=== PATIENT | female | born 1950 | race Caucasian/White ===

== ENCOUNTER 2018-04-06 11:36 | Observation (INO) | payer OTHER ==
[2018-04-06] MEDS ORDERED: METOPROLOL TARTRATE 5 MG/5 ML INJ IV ONE (12:06)
[2018-04-06] MEDS ORDERED: METOPROLOL TAR 50 MG TAB ONE (12:06)
[2018-04-06] MEDS ORDERED: NA CHLORIDE 0.9% 1,000 ML ONE (12:06)
[2018-04-06 12:12] LABS: Absolute Monocytes 0.8 K/uL (0.1-1.3); Absolute Neutrophil 6.6 K/uL (1.8-8.0); Basophils % 1.3 % (0-1.3); Eosinophils % 2.1 % (0-4.4); Hematocrit 45.3 % (36.0-45.0); MCH 31.5 pg (27.0-35.0); MPV 8.9 fL (7.6-11.3); Monocytes % 7.4 % (3.3-12.3); RBC Red Blood Cell Count 4.98 M/uL (3.86-4.86)
[2018-04-06 12:19] LABS: Protime INR 1.13
[2018-04-06 12:38] LABS: ALT/SGPT 23 U/L (12-78); AST/SGOT 11 U/L (15-37); Albumin 3.9 g/dL (3.4-5.0); Alkaline Phosphatase 115 U/L (45-117); BUN Blood Urea Nitrogen 17 mg/dL (7-18); Bicarbonate 24 mmol/L (21-32); Bilirubin Direct 0.1 mg/dL (0-0.2); Bilirubin Total 0.3 mg/dL (0.2-1.0); Glucose Level 116 mg/dL (74-106); Lipase 165 U/L (73-393); Magnesium 2.4 mg/dL (1.8-2.4); NT PRO-BNP 644 pg/mL (<125); Potassium 4.1 mmol/L (3.5-5.1); Protein, Total 7.5 g/dL (6.4-8.2); Sodium Level 143 mmol/L (136-145); Thyroid Stimulating Hormone 0.015 uIU/mL (0.360-3.740); Troponin (Emerg Dept Use Only) < 0.02 ng/mL (0.0-0.045)
[2018-04-06] MEDS ORDERED: FAMOTIDINE 20 MG/2 ML VIAL IV ONE (12:42)
[2018-04-06] MEDS ORDERED: ENOXAPARIN 100 MG/ML SYR SQ ONE (12:42)
--- NOTE | 2018-04-06 12:49 | RAD REPORT ---
EXAM DESCRIPTION: RAD - Chest Single View - 04/06/2018 12:39 pm CLINICAL HISTORY: Palpitations, cardiac a arrhythmia, tachycardia COMPARISON: None. TECHNIQUE: AP portable chest image was obtained 1225 hours . FINDINGS: No mass, consolidation or failure finding. Interstitial markings are mildly prominent pres umed to be baseline. No acute respiratory symptoms were detailed. Heart and vasculature are normal. N o measurable pleural effusion and no pneumothorax. No gross bony abnormality seen. No acute aortic fi ndings suspected. Resuscitation paddles overlie the upper right chest left upper lateral abdomen IMPRESSION: No acute cardiopulmonary process.
--- OUTSIDE RECORDS SUMMARY | 2018-04-06 13:03 | XMS REPORT ---
:1950 Author Organization eClinicalWorks Care Team Providers Name Role Phone Cassy Aden Provider Role Unavailable Allergies No Known Allergies Problems Problem Type Condition Code Onset Dates Condition Status Problem Hypothyroidism, unspecified type E03.9 Active Problem Elevated blood pressure reading R03.0 Active without diagnosis of hypertension Problem Hypothyroidism E03.9 Active Assessment Hypothyroidism E03.9 Active Problem Cardiac dysrhythmia, unspecified I49.9 Active Medications Medication Code Code Instructions Start End Status Dosage System Date Date Levothyroxine [facility] [id number] 175 MCG Orally Active 1 tablet Sodium Once a day on an empty stomach in the morning Results No Known Results Summary Purpose eClinicalWorks Submission
--- OUTSIDE RECORDS SUMMARY | 2018-04-06 13:03 | XMS REPORT ---
:1950 Author Organization eClinicalWorks Care Team Providers Name Role Phone Cassy Aden Provider Role Unavailable Allergies, Adverse Reactions, Alerts Substance Reaction Event Type N.K.D.A. Info Not Available Non Drug Allergy Problems Problem Type Condition Code Onset Dates Condition Status Problem Hypothyroidism, unspecified type E03.9 Active Problem Elevated blood pressure reading R03.0 Active without diagnosis of hypertension Problem Hypothyroidism E03.9 Active Assessment Elevated blood pressure reading R03.0 Active without diagnosis of hypertension Problem Cardiac dysrhythmia, unspecified I49.9 Active Assessment Hypothyroidism, unspecified type E03.9 Active Medications Medication Code Code Instructions Start End Status Dosage System Date Date Levothyroxine [facility] [id number] 175 MCG Orally Active 1 tablet Sodium Once a day on an empty stomach in the morning Results No Known Results Summary Purpose eClinicalWorks Submission
[2018-04-06] MEDS ORDERED: ASPIRIN 81 MG CHEWABLE TABLET ONE (13:09)
--- NOTE | 2018-04-06 14:08 | EDPHYS ---
Physician Documentation [facility] Name: Julieth Stevenson Age: 67 yrs Sex: Female : 1950 Arrival Date: 04/06/2018 Time: 11:39 Bed 4 Private MD: Cassy Aden ED Physician Jean Marie Alvarez HPI: 04/06 12:52 This 67 yrs old Female presents to ER via Ambulatory with complaints of High jeannette Heart Rate. 12:52 The patient presents with a history of irregular heart beat, heart racing. Context: The jeannette symptoms occur at rest, with light activity. Onset: The symptoms/episode began/occurred just prior to arrival. Duration: The patient or guardian reports a single episode, that is still ongoing. Modifying factors: The symptoms are aggravated by nothing. The symptoms are alleviated by nothing. Associated signs and symptoms: Pertinent positives: SOB. Severity of symptoms: At their worst the symptoms were mild moderate in the emergency department the symptoms are unchanged. The patient has experienced similar episodes in the past, a few times. Historical: - Allergies: 11:45 No Known Allergies; aa5 - PMHx: 11:45 Thyroid problem; aa5 - PSHx: 11:45 None; aa5 - Immunization history:: Adult Immunizations. - Ebola Screening: : No symptoms or risks identified at this time. - Social history:: Smoking status: . - Family history:: not pertinent. ROS: 12:52 Constitutional: Negative for fever, chills, and weight loss, Eyes: Negative for injury, jeannette pain, redness, and discharge, ENT: Negative for injury, pain, and discharge, Neck: Negative for injury, pain, and swelling, Respiratory: Negative for shortness of breath, cough, wheezing, and pleuritic chest pain, Abdomen/GI: Negative for abdominal pain, nausea, vomiting, diarrhea, and constipation, Back: Negative for injury and pain, : Negative for injury, bleeding, discharge, and swelling, MS/Extremity: Negative for injury and deformity, Skin: Negative for injury, rash, and discoloration, Neuro: Negative for headache, weakness, numbness, tingling, and seizure, Psych: Negative for depression, anxiety, suicide ideation, homicidal ideation, and hallucinations, Allergy/Immunology: Negative for hives, rash, and allergies, Endocrine: Negative for neck swelling, polydipsia, polyuria, polyphagia, and marked weight changes, Hematologic/Lymphatic: Negative for swollen nodes, abnormal bleeding, and unusual bruising. 12:52 Cardiovascular: Positive for palpitations. Exam: 12:52 Constitutional: This is a well developed, well nourished patient who is awake, alert, jeannette and in no acute distress. Head/Face: Normocephalic, atraumatic. Eyes: Pupils equal round and reactive to light, extra-ocular motions intact. Lids and lashes normal. Conjunctiva and sclera are non-icteric and not injected. Cornea within normal limits. Periorbital areas with no swelling, redness, or edema. ENT: Nares patent. No nasal discharge, no septal abnormalities noted. Tympanic membranes are normal and external auditory canals are clear. Oropharynx with no redness, swelling, or masses, exudates, or evidence of obstruction, uvula midline. Mucous membranes moist. Neck: Trachea midline, no thyromegaly or masses palpated, and no cervical lymphadenopathy. Supple, full range of motion without nuchal rigidity, or vertebral point tenderness. No Meningismus. Chest/axilla: Normal chest wall appearance and motion. Nontender with no deformity. No lesions are appreciated. Respiratory: Lungs have equal breath sounds bilaterally, clear to auscultation and percussion. No rales, rhonchi or wheezes noted. No increased work of breathing, no retractions or nasal flaring. Abdomen/GI: Soft, non-tender, with normal bowel sounds. No distension or tympany. No guarding or rebound. No evidence of tenderness throughout. Back: No spinal tenderness. No costovertebral tenderness. Full range of motion. Female : Normal external genitalia. Skin: Warm, dry with normal turgor. Normal color with no rashes, no lesions, and no evidence of cellulitis. MS/ Extremity: Pulses equal, no cyanosis. Neurovascular intact. Full, normal range of motion. Neuro: Awake and alert, GCS 15, oriented to person, place, time, and situation. Cranial nerves II-XII grossly intact. Motor strength 5/5 in all extremities. Sensory grossly intact. Cerebellar exam normal. Normal gait. Psych: Awake, alert, with orientation to person, place and time. Behavior, mood, and affect are within normal limits. 12:52 Cardiovascular: Rate: tachycardic, Rhythm: irregularly irregular, Pulses: Pulses are 4+ in bilateral radial, brachial, femoral, popliteal, posterior tibial and and dorsalis pedis arteries.. Heart sounds: normal, Edema: is not appreciated, JVD: is noted bilaterally. Vital Signs: 11:42 Pulse 160; Resp 18 S; Pulse Ox 97% on R/A; Weight 91.63 kg (R); Height 5 ft. 7 in. aa5 (170.18 cm) (R); 12:03 Temp 98.4(O); tw2 12:04 Pulse 80; tw2 12:06 BP 138 / 68; Pulse 85; tw2 12:44 BP 155 / 81; Pulse 81; Resp 23; Pulse Ox 97% on R/A; tw2 13:07 BP 149 / 61; Pulse 74; Resp 15; Pulse Ox 99% on R/A; tw2 13:52 BP 127 / 64; Pulse 77; Resp 16; Pulse Ox 100% on R/A; hb 14:26 BP 128 / 75; Pulse 69; Resp 15; Pulse Ox 100% on R/A; hb 15:30 BP 146 / 70; Pulse 70; Resp 17; Pulse Ox 100% on R/A; tw2 15:57 BP 122 / 67; Pulse 70; Resp 17; Pulse Ox 99% on R/A; tw2 11:42 Body Mass Index 31.64 (91.63 kg, 170.18 cm) aa5 12:04 provider notified, EKG ordered. tw2 12:06 ekg at bedside at this time. tw2 MDM: 11:56 Patient medically screened. [facility] 12:52 Data reviewed: vital signs, nurses notes, lab test result(s), EKG, radiologic studies. [facility] 04/06 11:58 Order name: Basic Metabolic Panel; Complete Time: 12:55 [facility] 04/06 11:58 Order name: CBC with Diff; Complete Time: 12:55 [facility] 04/06 11:58 Order name: LFT's; Complete Time: 12:55 [facility] 04/06 11:58 Order name: Magnesium; Complete Time: 12:55 [facility] 04/06 11:58 Order name: NT PRO-BNP; Complete Time: 12:55 [facility] 04/06 11:58 Order name: PT-INR; Complete Time: 12:55 [facility] 04/06 11:58 Order name: Troponin (emerg Dept Use Only); Complete Time: 12:55 [facility] 04/06 11:58 Order name: XRAY Chest (1 view); Complete Time: 12:55 [facility] 04/06 11:58 Order name: TSH; Complete Time: 12:55 [facility] 04/06 11:58 Order name: Urine Culture [facility] 04/06 11:58 Order name: Lipase; Complete Time: 12:55 [facility] 04/06 13:35 Order name: Echo w/ Doppler [facility] 04/06 11:58 Order name: EKG; Complete Time: 11:59 [facility] 04/06 11:58 Order name: Cardiac monitoring; Complete Time: 18:39 [facility] 04/06 11:58 Order name: EKG - Nurse/Tech; Complete Time: 18:39 [facility] 04/06 11:58 Order name: IV Saline Lock; Complete Time: 18:39 [facility] 04/06 11:58 Order name: Labs collected and sent; Complete Time: 18:39 [facility] 04/06 11:58 Order name: O2 Per Protocol; Complete Time: 18:39 [facility] 04/06 11:58 Order name: O2 Sat Monitoring; Complete Time: 18:39 [facility] 04/06 14:15 Order name: EKG Electrocardiogram EDMN 04/06 14:15 Order name: CONS Physician Consult EDMN Administered Medications: 12:00 Drug: Lopressor (metoprolol TARTRATE) 50 mg Route: PO; tw2 12:59 Follow up: Response: No adverse reaction tw2 12:02 Drug: NS 0.9% 1000 ml Route: IV; Rate: 75 ml/hr; Site: right antecubital; tw2 14:48 Follow up: IV Status: Infusion continued upon admission tw2 12:40 Drug: Lovenox 1 mg/kg Route: Sub-Q; Site: right lower abdomen; tw2 13:06 Follow up: Response: No adverse reaction tw2 12:41 Drug: Pepcid 20 mg Route: IVP; Site: right antecubital; tw2 13:07 Follow up: Response: No adverse reaction tw2 13:06 Drug: Aspirin 81 mg Route: PO; tw2 13:07 Follow up: Response: No adverse reaction tw2 15:57 Not Given (pts condition): Lopressor 5 mg IVP every 5 minutes; Hold for SBP < 100 or HR tw2 < 60. x3 Disposition: 04/06/18 14:08 Hospitalization ordered by Keiko Navarrete for Observation. Preliminary diagnosis is Atrial fibrillation and flutter - with rvr. - Bed requested for Telemetry/MedSurg (observation). - Status is Observation. tw2 - Condition is Stable. - Problem is new. - Symptoms have improved. UTI on Admission? No Signatures: Dispatcher [employer] EDMS Peggy Bradley Corey, MD MD cha Calderon, Audri, RN RN aa5 Yanet Soto RN RN tw2 Corrections: (The following items were deleted from the chart) 14:18 14:08 Hospitalization Ordered by Chandler Mccoy DO for Observation. Preliminary jeannette diagnosis is Atrial fibrillation and flutter - with rvr. Bed requested for Telemetry/MedSurg (observation). Status is Observation. Condition is Stable. Problem is new. Symptoms have improved. UTI on Admission? No. jeannette 14:46 14:18 04/06/2018 14:08 Hospitalization Ordered by Keiko Navarrete MD for Observation. bd Preliminary diagnosis is Atrial fibrillation and flutter - with rvr. Bed requested for Telemetry/MedSurg (observation). Status is Observation. Condition is Stable. Problem is new. Symptoms have improved. UTI on Admission? No. jeannette 15:58 14:46 04/06/2018 14:08 Hospitalization Ordered by Keiko Navarrete MD for Observation. tw2 Preliminary diagnosis is Atrial fibrillation and flutter - with rvr. Bed requested for Telemetry/MedSurg (observation). Status is Observation. Condition is Stable. Problem is new. Symptoms have improved. UTI on Admission? No. bd
--- NOTE | 2018-04-06 14:08 | ER ---
Nurse's Notes [facility] Name: Julieth Stevenson Age: 67 yrs Sex: Female : 1950 Arrival Date: 04/06/2018 Time: 11:39 Bed 4 Private MD: Cassy Aden Diagnosis: Atrial fibrillation and flutter-with rvr Presentation: 04/06 11:40 Presenting complaint: Patient states: "I went to Dr. Palomo's office for a well aa5 women's check up and she said to come here because my heart rate is 160". Pt denies SOB, denies chest pain, denies palpitations. 11:40 Acuity: LAST 2 aa5 11:40 Method Of Arrival: Ambulatory aa5 11:51 Transition of care: patient was not received from another setting of care. Onset of aa5 symptoms was April 06, 2018. Risk Assessment: Do you want to hurt yourself or someone else? Patient reports no desire to harm self or others. Initial Sepsis Screen: Does the patient meet any 2 criteria? HR > 90 bpm. Does the patient have a suspected source of infection? No. Patient's initial sepsis screen is negative. Care prior to arrival: None. Historical: - Allergies: 11:45 No Known Allergies; aa5 - PMHx: 11:45 Thyroid problem; aa5 - PSHx: 11:45 None; aa5 - Immunization history:: Adult Immunizations. - Ebola Screening: : No symptoms or risks identified at this time. - Social history:: Smoking status: . - Family history:: not pertinent. Screenin:06 Abuse screen: Denies threats or abuse. Nutritional screening: No deficits noted. tw2 Tuberculosis screening: No symptoms or risk factors identified. Fall Risk None identified. Assessment: 12:06 General: Appears in no apparent distress. well groomed, Behavior is calm, cooperative, tw2 appropriate for age. Pain: Denies pain. Neuro: Level of Consciousness is awake, alert, obeys commands, Oriented to person, place, time, situation. Cardiovascular: Denies chest pain, shortness of breath, Heart tones S1 S2 Capillary refill < 3 seconds Patient's skin is warm and dry. Respiratory: Airway is patent Respiratory effort is even, unlabored, Respiratory pattern is regular, symmetrical, Breath sounds are clear bilaterally. GI: No signs and/or symptoms were reported involving the gastrointestinal system. Abdomen is round obese, Bowel sounds present X 4 quads. : No signs and/or symptoms were reported regarding the genitourinary system. EENT: No signs and/or symptoms were reported regarding the EENT system. Derm: No signs and/or symptoms reported regarding the dermatologic system. Musculoskeletal: No signs and/or symptoms reported regarding the musculoskeletal system. Circulation, motion, and sensation intact. Range of motion: intact in all extremities. 12:45 Reassessment: Patient appears in no apparent distress at this time. No changes from tw2 previously documented assessment. Patient and/or family updated on plan of care and expected duration. Pain level reassessed. Patient is alert, oriented x 3, equal unlabored respirations, skin warm/dry/pink. 13:45 Reassessment: Patient appears in no apparent distress at this time. No changes from hb previously documented assessment. Patient and/or family updated on plan of care and expected duration. Pain level reassessed. Patient is alert, oriented x 3, equal unlabored respirations, skin warm/dry/pink. 14:26 Reassessment: Patient appears in no apparent distress at this time. No changes from hb previously documented assessment. Patient and/or family updated on plan of care and expected duration. Pain level reassessed. Patient is alert, oriented x 3, equal unlabored respirations, skin warm/dry/pink. 14:57 Reassessment: Report called to Beth CASTRO. hb 15:00 Reassessment: ECHO at bedside, Beth CASTRO notified pt transport to floor will be hb delayed. Charge Nurse Marti CASTRO notified. 15:58 Reassessment: Patient appears in no apparent distress at this time. No changes from tw2 previously documented assessment. Patient and/or family updated on plan of care and expected duration. Pain level reassessed. Patient is alert, oriented x 3, equal unlabored respirations, skin warm/dry/pink. Vital Signs: 11:42 Pulse 160; Resp 18 S; Pulse Ox 97% on R/A; Weight 91.63 kg (R); Height 5 ft. 7 in. aa5 (170.18 cm) (R); 12:03 Temp 98.4(O); tw2 12:04 Pulse 80; tw2 12:06 BP 138 / 68; Pulse 85; tw2 12:44 BP 155 / 81; Pulse 81; Resp 23; Pulse Ox 97% on R/A; tw2 13:07 BP 149 / 61; Pulse 74; Resp 15; Pulse Ox 99% on R/A; tw2 13:52 BP 127 / 64; Pulse 77; Resp 16; Pulse Ox 100% on R/A; hb 14:26 BP 128 / 75; Pulse 69; Resp 15; Pulse Ox 100% on R/A; hb 15:30 BP 146 / 70; Pulse 70; Resp 17; Pulse Ox 100% on R/A; tw2 15:57 BP 122 / 67; Pulse 70; Resp 17; Pulse Ox 99% on R/A; tw2 11:42 Body Mass Index 31.64 (91.63 kg, 170.18 cm) aa5 12:04 provider notified, EKG ordered. tw2 12:06 ekg at bedside at this time. tw2 ED Course: 11:39 Patient arrived in ED. mr 11:40 Cassy Aden MD is Private Physician. mr 11:42 Arm band placed on Patient placed in an exam room, on a stretcher. aa5 11:45 Placed in gown. Bed in low position. Side rails up X 1. animal control officer on. Pulse ox tw2 on. NIBP on. [place] applied as well. 11:54 Triage completed. aa5 11:55 Inserted saline lock: 20 gauge in right antecubital area, using aseptic technique. hb Blood collected. 11:56 Jean Marie Alvarez MD is Attending Physician. jeannette 11:59 EKG done, by coffee machine technician. reviewed by Jean Marie Alvarez MD. at1 12:06 Yanet Soto, MATTHEW is Primary Nurse. tw2 12:37 X-ray completed. Portable x-ray completed in exam room. Patient tolerated procedure sw well. 12:38 XRAY Chest (1 view) In Process Unspecified. EDMS 14:07 Chandler Mccoy DO is Hospitalizing Provider. jeannette 14:18 Keiko Navarrete MD is Hospitalizing Provider. jeannette 14:59 No provider procedures requiring assistance completed. Patient admitted, IV remains in hb place. Administered Medications: 12:00 Drug: Lopressor (metoprolol TARTRATE) 50 mg Route: PO; tw2 12:59 Follow up: Response: No adverse reaction tw2 12:02 Drug: NS 0.9% 1000 ml Route: IV; Rate: 75 ml/hr; Site: right antecubital; tw2 14:48 Follow up: IV Status: Infusion continued upon admission tw2 12:40 Drug: Lovenox 1 mg/kg Route: Sub-Q; Site: right lower abdomen; tw2 13:06 Follow up: Response: No adverse reaction tw2 12:41 Drug: Pepcid 20 mg Route: IVP; Site: right antecubital; tw2 13:07 Follow up: Response: No adverse reaction tw2 13:06 Drug: Aspirin 81 mg Route: PO; tw2 13:07 Follow up: Response: No adverse reaction tw2 15:57 Not Given (pts condition): Lopressor 5 mg IVP every 5 minutes; Hold for SBP < 100 or HR tw2 < 60. x3 Outcome: 14:08 Decision to Hospitalize by Provider. jeannette 15:58 Patient left the ED. tw2 15:58 Admitted to Med/surg accompanied by tech, with chart. tw2 15:58 Condition: stable 15:58 Instructed on the need for admit. Signatures: Dispatcher [employer] EDMS Jean Marie Alvarez MD MD cha Rivera, Maria mr Calderon, Audri, RN RN aa5 Staci Cornejo, water project engineer EKG Tat1 Orin Azevedo Heather, Yanet Ardon RN, RN RN tw2 Corrections: (The following items were deleted from the chart) 11:51 Presenting complaint: Patient states: "I went to Dr. Palomo's office for a aa5 well women's check up and she said to come here because my heart rate is 160". Pt denies SOB, denies chest pain, denies palpitations. aa5 11:51 Method Of Arrival: Ambulatory [facility] aa5 11:51 [facility]
--- NOTE | 2018-04-06 15:38 | ECHO ---
HEIGHT: ft in WEIGHT: lb oz DATE OF STUDY: 04/06/[address]: Jean Marie Alvarez MD 2-DIMENSIONAL: YES M.MODE: YES DOPPLER: YES COLOR FLOW: YES TDS: NO PORTABLE: YES DEFINITY: NO BUBBLE STUDY: NO DIAGNOSIS: TACHYCARDIA CARDIAC HISTORY: CATHERIZATION: NO SURGERY: NO PROSTHETIC VALVE: NO PACEMAKER: NO MEASUREMENTS (cm) DIASTOLIC (NORMALS) SYSTOLIC (NORMALS) IVSd 1.1 (0.6-1.2) LA Diam 3.0 (1.9-4.0) LVEF 52% LVIDd 4.6 (3.5-5.7) LVIDs 3.3 (2.0-3.5) %FS 27% LVPWd 1.1 (0.6-1.2) Ao Diam 2.7 (2.0-3.7) 2 DIMENSIONAL ASSESSMENT: RIGHT ATRIUM: NORMAL LEFT ATRIUM: NORMAL RIGHT VENTRICLE: NORAML LEFT VENTRICLE: NORMAL TRICUSPID VALVE: NORMAL MITRAL VALVE: NORMAL PULMONIC VALVE: NORMAL AORTIC VALVE: NORMAL PERICARDIAL EFFUSION: NONE AORTIC ROOT: NORMAL LEFT VENTRICULAR WALL MOTION: NORMAL DOPPLER/COLOR FLOW: MILD TRICUSPID REGURGITATION. NORMAL RIGHT VENTRICULAR SYSTOLIC PRESSURE. COMMENTS: NORMAL 2D ECHOCARDIOGRAM. MILD TRICUSPID REGURGITATION. TECHNOLOGIST: Karlo TORRES
--- NOTE | 2018-04-06 15:40 | EKG ---
Test Date: 2018-04-06 Test Time: 11:55:20 Outside Sales Account Representative: MAGALIE MEASUREMENT RESULTS: Intervals: Rate: 153 [place]: QRSD: 122 QT: 320 QTc: 510 [place]: P: [place]: QRS: 26 T: 120 INTERPRETIVE STATEMENTS: Atrial fibrillation with rapid ventricular response Left bundle branch block Abnormal ECG No previous ECG available for comparison Electronically Signed On 04-06-18 15:39:43 CDT by Andriy Xiao
--- NOTE | 2018-04-06 15:40 | EKG ---
Test Date: 2018-04-06 Test Time: 12:09:52 Lead Architect: JOSE CARLOS MEASUREMENT RESULTS: Intervals: Rate: 84 [place]: 232 QRSD: 138 QT: 402 QTc: 475 [place]: P: 74 [place]: 232 QRS: -33 T: 93 INTERPRETIVE STATEMENTS: Sinus rhythm with 1st degree AV block Left axis deviation Left bundle branch block Abnormal ECG Compared to ECG 04/06/2018 11:55:20 First degree AV block now present Left-axis deviation now present Atrial fibrillation no longer present Electronically Signed On 04-06-18 15:39:34 CDT by Andriy Xiao
--- NOTE | 2018-04-06 16:25 | P.HP ---
Certification for Inpatient Patient admitted to: Observation With expected LOS: <2 Midnights Patient will require the following post-hospital care: None Practitioner: I am a practitioner with admitting privileges, knowledge of patient current condition, hospital course, and medical plan of care. Services: Services provided to patient in accordance with Admission requirements found in Title 42 Section 412.3 of the Code of Federal Regulations Patient History Date of Service: 04/06/18 Primary Care Provider: Dr Aden Reason for admission: Afib History of Present Illness: This is a 59-year-old female with a history of hypothyroidism who presented to the ED from her primary care doctor's office. Patient stated that she was in her general state of health until she went to her primary care doctor's office today where they did her initial vitals and was found to have pulse 160. Patient's family doctor at that time recommended that she come to the ER and get a further evaluated. In the ER patient was found to have a regular heart rate with pulse rate of 157. Patient has not had any chest pain shortness of breath or any other associated symptoms with the elevated pulse rate. Patient was given medications in the ER. Patient states that in the past she has had on and off palpitations however has never had a regular rate or has not been diagnosed with irregular heart rate before. Patient does not take any medication aside from her thyroid medicine that was prescribed by her primary care doctor. Patient denies having any fever chills nausea vomiting abdominal pain shortness of breath chest pain or any other associated symptoms at this time Patient was seen in the ER by the time I saw the patient in the ER she had converted back to regular rate and rhythm. Allergies No Known Allergies Allergy (Unverified 04/06/18 14:53) Review of Systems 10-point ROS is otherwise unremarkable Physical Examination - Vital Signs Temperature: 98.4 F Blood Pressure: 146/70 Pulse: 70 Respirations: 17 - Physical Exam General: Alert, In no apparent distress HEENT: Atraumatic, PERRLA, Mucous membr. moist/pink, EOMI, Sclerae nonicteric Neck: Supple, 2+ carotid pulse no bruit, No LAD, Without JVD or thyroid abnormality Respiratory: Clear to auscultation bilaterally, Normal air movement Cardiovascular: Regular rate/rhythm, Normal S1 S2 Gastrointestinal: Normal bowel sounds, No tenderness Musculoskeletal: No tenderness Integumentary: No rashes Neurological: Normal gait, Normal speech, Normal strength at 5/5 x4 extr, Normal tone, Normal affect Lymphatics: No axilla or inguinal lymphadenopathy - Studies Laboratory Data (last 24 hrs) 04/06/18 11:55: PT 13.4 H, INR 1.13 04/06/18 11:55: WBC 10.8, Hgb 15.7 H, Hct 45.3 H, Plt Count 358 04/06/18 11:55: Sodium 143, Potassium 4.1, BUN 17, Creatinine 1.20, Glucose 116 H, Magnesium 2.4, Total Bilirubin 0.3, AST 11 L, ALT 23, Alkaline Phosphatase 115, Lipase 165 Assessment and Plan - Problems (Diagnosis) (1) Atrial fibrillation with RVR Current Visit: Yes Status: Acute Plan: Afib with RVR rate of 160 -Now Converted to Regular rate and rhythm -Cardiac tele -Cardiology consult. -ECHO pending -PO BB and Baby ASA for Anticoagulation for now (2) Hypothyroid Current Visit: Yes Status: Chronic Plan: Restart Home medication Qualifiers: Hypothyroidism type: acquired Qualified Code(s): E03.9 - Hypothyroidism, unspecified Discharge Plan: Home Plan to discharge in: 24 Hours - Advance Directives Does patient have a Living Will: No Does patient have a Durable POA for Healthcare: No - Code Status/Comfort Care Code Status Assessed: Yes Critical Care: No
[2018-04-06] MEDS ORDERED: ONDANSETRON 4 MG/2 ML VIAL IV PRN (16:30)
[2018-04-06] MEDS ORDERED: ACETAMINOPHEN 500 MG TAB PO PRN (16:30)
[2018-04-06] MEDS: NA CHLORIDE 0.9% 1,000 ML IV SCH ×2 (16:30→23:32)
[2018-04-06 16:44] VITALS: BMI 31.6
[2018-04-06] MEDS ORDERED: INFLUENZA VACCINE (for 3y+) 0.5 ML DOSE IMVAC ONE (18:00)
[2018-04-06 22:55] VITALS: O2SAT 98
[2018-04-07 04:52] LABS: Absolute Lymphocytes (CBC) 2.6 K/uL (0.7-4.9); Absolute Monocytes 0.6 K/uL (0.1-1.3); Absolute Neutrophil 3.8 K/uL (1.8-8.0); Eosinophils % 3.8 % (0-4.4); Hematocrit 36.1 % (36.0-45.0); Lymphocytes % 35.4 % (15.3-44.8); MCH 31.9 pg (27.0-35.0); MCV 92.5 fL (80-100); MPV 8.8 fL (7.6-11.3); Monocytes % 8.5 % (3.3-12.3)
[2018-04-07 05:03] LABS: Albumin 3.1 g/dL (3.4-5.0); Bilirubin Total 0.4 mg/dL (0.2-1.0); Potassium 4.6 mmol/L (3.5-5.1); Protein, Total 5.9 g/dL (6.4-8.2)
[2018-04-07] MEDS: NA CHLORIDE 0.9% 1,000 ML IV SCH (08:42)
[2018-04-07] MEDS ORDERED: ENOXAPARIN 40 MG/0.4 ML SQ SCH (09:00)
[2018-04-07 10:11] VITALS: BP 163/68; TEMP 97.3
--- NOTE | 2018-04-07 13:45 | P.SSS ---
Patient History Date of Service: 04/07/18 Primary Care Provider: Dr Aden Reason for admission: Afib History of Present Illness: This is a 59-year-old female with a history of hypothyroidism who presented to the ED from her primary care doctor's office. Patient stated that she was in her general state of health until she went to her primary care doctor's office today where they did her initial vitals and was found to have pulse 160. Patient's family doctor at that time recommended that she come to the ER and get a further evaluated. In the ER patient was found to have a regular heart rate with pulse rate of 157. Patient has not had any chest pain shortness of breath or any other associated symptoms with the elevated pulse rate. Patient was given medications in the ER. Patient states that in the past she has had on and off palpitations however has never had a regular rate or has not been diagnosed with irregular heart rate before. Patient does not take any medication aside from her thyroid medicine that was prescribed by her primary care doctor. Patient denies having any fever chills nausea vomiting abdominal pain shortness of breath chest pain or any other associated symptoms at this time Patient was seen in the ER by the time I saw the patient in the ER she had converted back to regular rate and rhythm. Allergies No Known Allergies Allergy (Verified 04/06/18 16:34) Home Medications: Levothyroxine [Synthroid*] 75 mcg PO [id number] 04/06/18 Aspirin 81 mg PO DAILY #30 tab.chew 04/07/18 Metoprolol Succinate [Toprol Xl] 25 mg PO DAILY #30 tab.er.24h 04/07/18 - Past Medical/Surgical History Has patient received pneumonia vaccine in the past: No Diabetic: No -: Hypothyroid -: sinus problems - Family History Mother -: Hypertension, Diabetes Father -: Stroke, Cancer - Social History Smoking Status: Never smoker Alcohol use: No CD- Drugs: No Caffeine use: Yes Place of Residence: Home Review of Systems 10-point ROS is otherwise unremarkable Physical Examination - Vital Signs Temperature: 97.3 F Blood Pressure: 163/68 Pulse: 71 Respirations: 18 Pulse Ox (%): 97 - Physical Exam General: Alert, In no apparent distress HEENT: Atraumatic, PERRLA, Mucous membr. moist/pink, EOMI, Sclerae nonicteric Neck: Supple, 2+ carotid pulse no bruit, No LAD, Without JVD or thyroid abnormality Respiratory: Clear to auscultation bilaterally, Normal air movement Cardiovascular: Regular rate/rhythm, Normal S1 S2 Gastrointestinal: Normal bowel sounds, No tenderness Musculoskeletal: No tenderness Integumentary: No rashes Neurological: Normal gait, Normal speech, Normal strength at 5/5 x4 extr, Normal tone, Normal affect Lymphatics: No axilla or inguinal lymphadenopathy - Diagnosis (Problem(s)) (1) Atrial fibrillation with RVR Onset Date: 04/07/18 Status: Acute Plan: Afib with RVR rate of 160 on admission -Now Converted to Regular rate and rhythm -Cardiology was consulted who recommended the patient be started on Toprol-XL 25 mg and baby aspirin and be discharged home (2) Hypothyroid Onset Date: 04/07/18 Status: Chronic Plan: Patient was advised to take levothyroxine every other day due to decrease in TSH Qualifiers: Hypothyroidism type: acquired Qualified Code(s): E03.9 - Hypothyroidism, unspecified - Disposition Disposition: ROUTINE DISCHARGE Condition: GOOD Patient Discharge Instructions: Please F.u with PCP and Dr Ren in the office in 1 to 2 week post discharge. New medication. Toprol xl 25mg daily. ASA 81mg daily. Take your Thyroid medication Every other day Diet: Regular Activity: Ad layla
--- NOTE | 2018-04-08 12:23 | CON ---
Date of Consultation: 04/07/2018 The patient was admitted to Dr. Navarrete's service on 04/06/2018. Reason For Consultation: New-onset atrial fibrillation. History Of Present Illness: Ms. Stevenson is a 67-year-old female, who did not really have any past me dical history except for hypothyroidism, for which she takes Synthroid. Her TSH level during this ad mission was 0.015, indicated that she may be taking too much Synthroid. She actually was found to be in atrial fibrillation, was sent to the emergency room. She was asymptomatic and was giv en 50 mg of Lopressor p.o. and she converted to sinus rhythm. An echocardiogram done, before I saw h er, was perfectly normal without any wall motion abnormalities CHADS score. Past Medical History: Negative. Allergies: NONE. Review of Systems: Negative. Social History: Negative. Family History: Negative. Medications: Listed earlier. Physical Examination: General: She was hypertensive at 170/72, but in sinus rhythm. HEENT: Negative. Neck: Supple. No bruit. Chest: Clear. Cardiac: Revealed a regular rhythm and rate. No murmurs, gallops, or rubs. Abdomen: Benign. Extremities: Revealed no clubbing, cyanosis, or edema. Diagnostic Data: Diagnostic data, except for the TSH, was fairly unremarkable. Her first EKG showed left bundle-branch block with AFib. The second one was normal with a left bundle-branch block. Her BNP was 644. Impression And Plan: New-onset atrial fibrillation with left bundle-branch block in a patient with a low CHADS score, normal echocardiogram, hypertension, dyslipidemia, no previous strokes. I think a baby aspirin and low-dose beta-kristal if indicated. Her beta kristal may help prevent her atrial fi brillation and treat her blood pressure. She needs to decrease her Synthroid dose somehow. I recomm ended that she takes it every other day for now and check with regarding dosing. She can go home today whenever it is okay with Dr. Navarrete. I think it would be very reasonable to do a st ress test on Ms. Stevenson as an outpatient to make sure that coronary artery disease is not the culpri t in her atrial fibrillation. This will be arranged as an outpatient. The case was discussed with Jaymie Navarrete. She can go home. JOSH/JAGJIT Voice ID: [id number] Report ID: [id number]
== END 2018-04-07 12:15 | disposition home or self-care (01) ==
LOC: ER 11:36 → ERHOLD 14:10 → 4TH 15:00
PROVIDERS: ADMIT Family Medicine; ATTEND Family Medicine
DX: I48.91 Unspecified atrial fibrillation (principal); E03.9 Hypothyroidism, unspecified; I44.7 Left bundle-branch block, unspecified
CPT/HCPCS: 36415; 71045; 80048; 80053; 80076; 83690; 83735; 83880; 84443; 84484; 85025 ×2; 85610; 93005 ×2; 93306; 96361; 96372; 96374; 99285; G0378 ×2; J1650 ×2; J7030 ×3

== ENCOUNTER 2023-08-13 10:30 | Day surgery (SDC) | payer OTHER ==
[2023-08-11 10:34] LABS: Hematocrit 42.1 % (36.0-45.0); Lymphocytes % 31.4 % (15.3-44.8); MCV 89.2 fL (80-100); MPV 8.6 fL (7.6-11.3); Platelets 298 thou/uL (152-406); RBC Red Blood Cell Count 4.72 M/uL (3.86-4.86)
[2023-08-11 10:41] LABS: Protime INR 1.38
[2023-08-11 10:48] LABS: Potassium 4.2 mEq/L (3.5-5.1)
[2023-08-13] MEDS ORDERED: NA CHLORIDE 0.9% 500 ML ONE (11:22)
[2023-08-13] MEDS ORDERED: METOPROLOL TARTRATE 5 MG/5 ML INJ IV ONE (11:50)
[2023-08-13] MEDS ORDERED: HYDRALAZINE HCL 20 MG/ML VIAL ONE (11:50)
[2023-08-13] MEDS ORDERED: ATROPINE SULF 1 MG/10 ML SYR IV ONE (11:51)
[2023-08-13] MEDS ORDERED: propofoL 200 MG/20 ML VIAL IV ONE (12:28)
[2023-08-13] MEDS ORDERED: LIDOCAINE 1% MPF 5 ML VIAL ONE (12:38)
[2023-08-13 14:07] VITALS: BP 118/85; TEMP 97.3; O2SAT 100
--- NOTE | 2023-08-14 06:51 | TEE ---
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 TRANSESOPHAGEAL ECHOCARDIOGRAM PROBE WAS INSERTED, NO DIFFICULTY 2. NO LEFT ATRIAL APPENDAGE THROMBUS IS SEEN TECHNOLOGIST: ZOLTAN BAEZ
--- NOTE | 2023-08-14 13:24 | EKG ---
Test Date: 2023-08-13 Test Time: 12:57:31 Rn Review: MAGALIE MEASUREMENT RESULTS: Intervals: Rate: 53 MI: 296 QRSD: 142 QT: 486 QTc: 456 [place]: P: 66 MI: 296 QRS: -45 T: 58 INTERPRETIVE STATEMENTS: Sinus bradycardia with 1st degree AV block Left axis deviation Left bundle branch block Abnormal ECG Compared to ECG 08/11/2023 11:12:55 First degree AV block now present Atrial fibrillation no longer present Electronically Signed On 08-14-23 13:22:12 DIRECT SUPPORT SPECIALIST by Andrea Fitzpatrick
--- NOTE | 2023-08-14 13:39 | EKG ---
Test Date: 2023-08-11 Test Time: 11:12:55 Instructional Developer: KEVIN MEASUREMENT RESULTS: Intervals: Rate: 91 ID: QRSD: [id number] QT: 390 QTc: 479 [place]: P: ID: [id number]: [id number] T: 101 INTERPRETIVE STATEMENTS: Atrial fibrillation Left axis deviation Left bundle branch block Abnormal ECG Compared to ECG 05/15/2023 09:59:04 Left-axis deviation now present Electronically Signed On 08-14-23 13:25:56 COST SPECIALIST by Andrea Fitzpatrick
== END 2023-08-13 13:35 | disposition home or self-care (01) ==
LOC: CCL 10:30
PROVIDERS: ATTEND Internal Medicine
PROC: B24BZZ4 Ultrasonography of Heart with Aorta, Transesophageal (ICD-10-PCS; principal; 2023-08-13)
PROC: 5A2204Z Restoration of Cardiac Rhythm, Single (ICD-10-PCS; 2023-08-13)
DX: I48.0 Paroxysmal atrial fibrillation (principal); I34.0 Nonrheumatic mitral (valve) insufficiency; I10 Essential (primary) hypertension; E07.9 Disorder of thyroid, unspecified; E66.9 Obesity, unspecified; Z68.32 Body mass index [BMI] 32.0-32.9, adult; Z79.82 Long term (current) use of aspirin; Z79.01 Long term (current) use of anticoagulants; Z79.899 Other long term (current) drug therapy
CPT/HCPCS: 36415; 80048; 85025; 85610; 85730; 92960; 93005; 93312; J0360; J0461; J2001; J2704; J7040

== ENCOUNTER 2023-10-22 15:04 | Inpatient (IN) | payer OTHER ==
--- OUTSIDE RECORDS SUMMARY | 2023-10-22 15:07 | XMS REPORT | Continuity of Care Document ---
Author Name Unknown Address [address] [facility] [address] [place] [address] [email or web address] Address [address] [facility] [address] [place] [address] Care Team Providers [facility] Vat Worker Name Role Phone Celeste Irvin Attending Clinician Unavailable Lisha Cloud Attending Clinician Unavailable Cassy Aden Attending Clinician Unavailable Payers Payer Name Policy Type Policy Number Effective Date Expirati on Date Source [employer] Replace C1 [id number] 2020 00:00:00 [facility] [employer] Replace C1 [id number] 2020 00:00:00 [facility] [employer] Replace C1 [id number] 2020 00:00:00 [facility] [employer] Replace C1 [id number] 2020 00:00:00 [facility] Problems Condition Name Condition Details Condition Category Status Onset Date Resolution Date Last Treatment Date Treating Clinician Comments Source [id number] Longsar[place]ii ng persistent atrial fibrillati on Problem [facility] [id number] Stage 3a chronic kidney disease Problem [facility] [id number] Hypertensi ve heart disease without CHF Problem [facility] Hyperglyce radha due to type 2 diabetes mellitus Type 2 diabetes mellitus with hyperglyce radha Problem [facility] [id number] Elevated blood pressure reading without diagnosis of hypertensi on Problem [facility] Cardiac dysrhythmi a Cardiac dysrhythmi a, unspecifie d Problem [facility] [id number] Muscle cramps Problem [facility] [id number] Therapeuti c drug monitoring Problem [facility] [id number] History of atrial fibrillati on Problem [facility] [id number] Obesity (BMI 30-39.9) Problem [facility] [id number] Atrial fibrillati on, unspecifie d type Problem [facility] [id number] Vitiligo Problem [facility] [id number] Hypothyroi dism, unspecifie d type Problem [facility] [id number] Abnormal renal function Problem [facility] [id number] Vitamin D deficiency Problem [facility] [id number] Acute bilateral back pain, unspecifie d back location Problem [facility] [id number] Status post fall Problem [facility] Social History Social Habit Start Date Stop Date Quantity Comments Source History of Tobacco Use [facility] Sex Assigned At [facility] Smoking Status Start Date Stop Date Source Never Smoker [facility] Medications Ordered Medication Name Filled Medication Name Start Date Stop Date Current Medication? Ordering Clinician Indication Dosage Frequency Signature (SIG) Comments Components Source Ozempic (0.25 or 0.5 MG/DOSE) 2 MG/3ML Ozempic (0.25 or 0.5 MG/DOSE) 2 MG/3ML 2- 00:00: 00 No Ozempic (0.25 or 0.5 MG/DOSE) 2 MG/3ML Ozempic (0.25 or 0.5 MG/DOSE) 2 MG/3ML Ozempic (0.25 or 0.5 MG/DOSE) 2 MG/3ML 222 00:00: 00 No Ozempic (0.25 or 0.5 MG/DOSE) 2 MG/3ML Metoprolol Succinate ER Metoprolol Succinate ER Yes Cassy Millender 1 tablet [facility] Magnesium Magnesium Yes Cassy Millender 1 tablet (OTC) [facility] Aspirin Aspirin Yes Cassy Millender 1 tablet [facility] Levothyroxi ne Sodium Levothyroxi ne Sodium Yes Cassy Millender 1 tablet on an empty stomach in the morning [facility] Multivitami n Multivitami n Yes Cassy Millender 1 tablet [facility] Vitamin D3 Vitamin D3 Yes Cassy Millender 1 capsule [facility] Levothyroxi ne Sodium 137 MCG Levothyroxi ne Sodium 137 MCG No Levothyrox ine Sodium 137 MCG Metoprolol Tartrate 25 MG Metoprolol Tartrate 25 MG No QD Metoprolol Tartrate 25 MG Aspirin 81 MG Aspirin 81 MG No 1{table t} QD Aspirin 81 MG Multivitami n - Multivitami n - No 1{table t} QD Multivitam in - Vitamin D3 25 MCG (1000 UT) Vitamin D3 25 MCG (1000 UT) No 1{capsu le} QD Vitamin D3 25 MCG (1000 UT) Vitamin D3 25 MCG (1000 UT) Vitamin D3 25 MCG (1000 UT) No 1{capsu le} QD Vitamin D3 25 MCG (1000 UT) Aspirin 81 MG Aspirin 81 MG No 1{table t} QD Aspirin 81 MG Metoprolol Tartrate 25 MG Metoprolol Tartrate 25 MG No QD Metoprolol Tartrate 25 MG Multivitami n - Multivitami n - No 1{table t} QD Multivitam in - Levothyroxi ne Sodium 137 MCG Levothyroxi ne Sodium 137 MCG No Levothyrox ine Sodium 137 MCG Vitamin D3 25 MCG (1000 UT) Vitamin D3 25 MCG (1000 UT) No 1{capsu le} QD Vitamin D3 25 MCG (1000 UT) Multivitami n - Multivitami n - No 1{table t} QD Multivitam in - Levothyroxi ne Sodium 125 MCG Levothyroxi ne Sodium 125 MCG No QD Levothyrox ine Sodium 125 MCG Vitamin D3 25 MCG (1000 UT) Vitamin D3 25 MCG (1000 UT) No 1{capsu le} QD Vitamin D3 25 MCG (1000 UT) Aspirin 81 MG Aspirin 81 MG No 1{table t} QD Aspirin 81 MG Metoprolol Tartrate 25 MG Metoprolol Tartrate 25 MG No QD Metoprolol Tartrate 25 MG Aspirin 81 MG Aspirin 81 MG No 1{table t} QD Aspirin 81 MG Levothyroxi ne Sodium 150 MCG Levothyroxi ne Sodium 150 MCG No QD Levothyrox ine Sodium 150 MCG Metoprolol Tartrate 25 MG Metoprolol Tartrate 25 MG No 1{table t_with_ food} BID Metoprolol Tartrate 25 MG Eliquis 5 MG Eliquis 5 MG No 1{table t} BID Eliquis 5 MG Vitamin D Vitamin D No Vitamin D Aspirin 81 MG Aspirin 81 MG No 1{table t} QD Aspirin 81 MG Levothyroxi ne Sodium 150 MCG Levothyroxi ne Sodium 150 MCG No QD Levothyrox ine Sodium 150 MCG Metoprolol Tartrate 25 MG Metoprolol Tartrate 25 MG No 1{table t_with_ food} BID Metoprolol Tartrate 25 MG Eliquis 5 MG Eliquis 5 MG No 1{table t} BID Eliquis 5 MG Vitamin D Vitamin D No Vitamin D Aspirin 81 MG Aspirin 81 MG No 1{table t} QD Aspirin 81 MG Levothyroxi ne Sodium 150 MCG Levothyroxi ne Sodium 150 MCG No QD Levothyrox ine Sodium 150 MCG Metoprolol Tartrate 25 MG Metoprolol Tartrate 25 MG No 1{table t_with_ food} BID Metoprolol Tartrate 25 MG Eliquis 5 MG Eliquis 5 MG No 1{table t} BID Eliquis 5 MG Vitamin D Vitamin D No Vitamin D Aspirin 81 MG Aspirin 81 MG No 1{table t} QD Aspirin 81 MG Levothyroxi ne Sodium 150 MCG Levothyroxi ne Sodium 150 MCG No QD Levothyrox ine Sodium 150 MCG Metoprolol Tartrate 25 MG Metoprolol Tartrate 25 MG No 1{table t_with_ food} BID Metoprolol Tartrate 25 MG Eliquis 5 MG Eliquis 5 MG No 1{table t} BID Eliquis 5 MG Vitamin D Vitamin D No Vitamin D Metoprolol Tartrate 100 MG Metoprolol Tartrate 100 MG No 1{table t_with_ food} BID Metoprolol Tartrate 100 MG Eliquis 5 MG Eliquis 5 MG No 1{table t} BID Eliquis 5 MG Levothyroxi ne Sodium 100 MCG Levothyroxi ne Sodium 100 MCG No QD Levothyrox ine Sodium 100 MCG Aspirin 81 MG Aspirin 81 MG No 1{table t} QD Aspirin 81 MG Vitamin D Vitamin D No Vitamin D Metoprolol Tartrate 100 MG Metoprolol Tartrate 100 MG No 1{table t_with_ food} BID Metoprolol Tartrate 100 MG Eliquis 5 MG Eliquis 5 MG No 1{table t} BID Eliquis 5 MG Levothyroxi ne Sodium 100 MCG Levothyroxi ne Sodium 100 MCG No QD Levothyrox ine Sodium 100 MCG Aspirin 81 MG Aspirin 81 MG No 1{table t} QD Aspirin 81 MG Vitamin D Vitamin D No Vitamin D Metoprolol Tartrate 100 MG Metoprolol Tartrate 100 MG No 1{table t_with_ food} BID Metoprolol Tartrate 100 MG Eliquis 5 MG Eliquis 5 MG No 1{table t} BID Eliquis 5 MG Levothyroxi ne Sodium 100 MCG Levothyroxi ne Sodium 100 MCG No QD Levothyrox ine Sodium 100 MCG Aspirin 81 MG Aspirin 81 MG No 1{table t} QD Aspirin 81 MG Vitamin D Vitamin D No Vitamin D Metoprolol Tartrate 100 MG Metoprolol Tartrate 100 MG No 1{table t_with_ food} BID Metoprolol Tartrate 100 MG Eliquis 5 MG Eliquis 5 MG No 1{table t} BID Eliquis 5 MG Levothyroxi ne Sodium 100 MCG Levothyroxi ne Sodium 100 MCG No QD Levothyrox ine Sodium 100 MCG Aspirin 81 MG Aspirin 81 MG No 1{table t} QD Aspirin 81 MG Vitamin D Vitamin D No Vitamin D Eliquis 5 MG Eliquis 5 MG No 1{table t} BID Eliquis 5 MG Levothyroxi ne Sodium 100 MCG Levothyroxi ne Sodium 100 MCG No QD Levothyrox ine Sodium 100 MCG Vitamin B6 Vitamin B6 No Vitamin B6 Aspirin 81 MG Aspirin 81 MG No 1{table t} QD Aspirin 81 MG Metoprolol Tartrate 100 MG Metoprolol Tartrate 100 MG No 1{table t_with_ food} BID Metoprolol Tartrate 100 MG Eliquis 5 MG Eliquis 5 MG No 1{table t} BID Eliquis 5 MG Levothyroxi ne Sodium 100 MCG Levothyroxi ne Sodium 100 MCG No QD Levothyrox ine Sodium 100 MCG Vitamin B6 Vitamin B6 No Vitamin B6 Aspirin 81 MG Aspirin 81 MG No 1{table t} QD Aspirin 81 MG Metoprolol Tartrate 100 MG Metoprolol Tartrate 100 MG No 1{table t_with_ food} BID Metoprolol Tartrate 100 MG Immunizations Ordered Immunization Name Filled Immunization Name Date Status Comments Source FLUZONE HIGH DOSE OVER 65 FLUZONE HIGH DOSE OVER 65 2019-07-19 11:19:00 Completed [facility] FLUZONE HIGH DOSE OVER 65 FLUZONE HIGH DOSE OVER 65 2019-07-19 11:19:00 Completed [facility] FLUZONE HIGH DOSE OVER 65 FLUZONE HIGH DOSE OVER 65 2019-07-19 11:19:00 Completed [facility] FLUZONE HIGH DOSE OVER 65 FLUZONE HIGH DOSE OVER 65 2019-07-19 11:19:00 Completed [facility] FLUZONE HIGH DOSE OVER 65 FLUZONE HIGH DOSE OVER 65 2019-07-19 11:19:00 Completed [facility] FLUZONE HIGH DOSE OVER 65 FLUZONE HIGH DOSE OVER 65 2019-07-19 11:19:00 Completed [facility] FLUZONE HIGH DOSE OVER 65 FLUZONE HIGH DOSE OVER 65 2019-07-19 11:19:00 Completed [facility] FLUZONE HIGH DOSE OVER 65 FLUZONE HIGH DOSE OVER 65 2019-07-19 11:19:00 Completed [facility] FLUZONE HIGH DOSE OVER 65 FLUZONE HIGH DOSE OVER 65 2019-07-19 11:19:00 Completed [facility] FLUZONE HIGH DOSE OVER 65 FLUZONE HIGH DOSE OVER 65 2019-07-19 00:00:00 Completed [facility] PNEUMAVAX 23 PNEUMAVAX 2018-08-04 14:42:00 Completed [facility] PNEUMAVAX 23 PNEUMAVAX 2018-08-04 14:42:00 Completed [facility] PNEUMAVAX 23 PNEUMAVAX 23 2018-08-04 14:42:00 Completed [facility] PNEUMAVAX 23 PNEUMAVAX 23 2018-08-04 14:42:00 Completed [facility] PNEUMAVAX 23 PNEUMAVAX 23 2018-08-04 14:42:00 Completed [facility] PNEUMAVAX 23 PNEUMAVAX 23 2018-08-04 14:42:00 Completed [facility] PNEUMAVAX 23 PNEUMAVAX 23 2018-08-04 14:42:00 Completed [facility] PNEUMAVAX 23 PNEUMAVAX 23 2018-08-04 14:42:00 Completed [facility] PNEUMAVAX 23 PNEUMAVAX 2018-08-04 14:42:00 Completed [facility] Fluzone Fluzone 2018-08-04 14:41:00 Completed [facility] Fluzone Fluzone 2018-08-04 14:41:00 Completed [facility] Fluzone Fluzone 2018-08-04 14:41:00 Completed [facility] Fluzone Fluzone 2018-08-04 14:41:00 Completed [facility] Fluzone Fluzone 2018-08-04 14:41:00 Completed [facility] Fluzone Fluzone 2018-08-04 14:41:00 Completed [facility] Fluzone Fluzone 2018-08-04 14:41:00 Completed [facility] Fluzone Fluzone 2018-08-04 14:41:00 Completed [facility] Fluzone Fluzone 2018-08-04 14:41:00 Completed [facility] Fluzone Fluzone 2018-08-04 00:00:00 Completed [facility] PNEUMAVAX 23 PNEUMAVAX 23 2018-08-04 00:00:00 Completed [facility] PNEUMAVAX 23 PNEUMAVAX 23 Unknown Completed Comm on [facility] Fluzone Fluzone Unknown Completed [facility] FLUZONE HIGH DOSE OVER 65 FLUZONE HIGH DOSE OVER 65 Unknown Completed [facility] PNEUMAVAX 23 PNEUMAVAX 23 Unknown Completed Comm on [facility] Fluzone Fluzone Unknown Completed [facility] FLUZONE HIGH DOSE OVER 65 FLUZONE HIGH DOSE OVER 65 Unknown Completed [facility] PNEUMAVAX 23 PNEUMAVAX 23 Unknown Completed Comm on [facility] Fluzone Fluzone Unknown Completed [facility] FLUZONE HIGH DOSE OVER 65 FLUZONE HIGH DOSE OVER 65 Unknown Completed [facility] PNEUMAVAX 23 PNEUMAVAX 23 Unknown Completed Comm on [facility] Fluzone Fluzone Unknown Completed [facility] FLUZONE HIGH DOSE OVER 65 FLUZONE HIGH DOSE OVER 65 Unknown Completed [facility] PNEUMAVAX 23 PNEUMAVAX 23 Unknown Completed Comm on [facility] Fluzone Fluzone Unknown Completed [facility] FLUZONE HIGH DOSE OVER 65 FLUZONE HIGH DOSE OVER 65 Unknown Completed [facility] PNEUMAVAX 23 PNEUMAVAX 23 Unknown Completed Comm on [facility] Fluzone Fluzone Unknown Completed [facility] FLUZONE HIGH DOSE OVER 65 FLUZONE HIGH DOSE OVER 65 Unknown Completed Common [facility] PNEUMAVAX 23 PNEUMAVAX 23 Unknown Completed Comm on [facility] Fluzone Fluzone Unknown Completed [facility] FLUZONE HIGH DOSE OVER 65 FLUZONE HIGH DOSE OVER 65 Unknown Completed [facility] PNEUMAVAX 23 PNEUMAVAX 23 Unknown Completed Comm on [facility] Fluzone Fluzone Unknown Completed [facility] FLUZONE HIGH DOSE OVER 65 FLUZONE HIGH DOSE OVER 65 Unknown Completed [facility] PNEUMAVAX 23 PNEUMAVAX 23 Unknown Completed Comm on [facility] Fluzone Fluzone Unknown Completed [facility] FLUZONE HIGH DOSE OVER 65 FLUZONE HIGH DOSE OVER 65 Unknown Completed [facility] PNEUMAVAX 23 PNEUMAVAX 23 Unknown Completed Comm on [facility] Fluzone Fluzone Unknown Completed [facility] FLUZONE HIGH DOSE OVER 65 FLUZONE HIGH DOSE OVER 65 Unknown Completed [facility] Vital Signs Vital Name Observation Time Observation Value Comments S ource height 2023-09-04 11:00:00 65.5 [in_i] Comm on [facility] weight 2023-09-04 11:00:00 212 [lb_av] Comm on [facility] temperature 2023-09-04 11:00:00 97.2 [degF] Com [facility] bmi 2023-09-04 11:00:00 34.74 kg/m2 Comm on [facility] oximetry 2023-09-04 11:00:00 97 % Commo n [facility] respiratory rate 2023-09-04 11:00:00 16 /min [facility] blood pressure systolic 2023-09-04 11:00:00 130 mm[Hg] [facility] blood pressure diastolic 2023-09-04 11:00:00 76 mm[Hg] [facility] height 2023-07-15 11:00:00 65.25 [in_i] Com [facility] weight 2023-07-15 11:00:00 210 [lb_av] Comm on [facility] temperature 2023-07-15 11:00:00 97.3 [degF] Com [facility] bmi 2023-07-15 11:00:00 34.67 kg/m2 Comm on [facility] oximetry 2023-07-15 11:00:00 97 % Commo n [facility] respiratory rate 2023-07-15 11:00:00 16 /min Common [facility] blood pressure systolic 2023-07-15 11:00:00 132 mm[Hg] Common [facility] blood pressure diastolic 2023-07-15 11:00:00 76 mm[Hg] [facility] height 2023-07-15 11:00:00 65.25 [in_i] Com mon [facility] weight 2023-07-15 11:00:00 210 [lb_av] Comm on [facility] temperature 2023-07-15 11:00:00 97.3 [degF] Com [facility] bmi 2023-07-15 11:00:00 34.67 kg/m2 Comm on [facility] oximetry 2023-07-15 11:00:00 97 % Commo n [facility] respiratory rate 2023-07-15 11:00:00 16 /min Common [facility] blood pressure systolic 2023-07-15 11:00:00 132 mm[Hg] [facility] blood pressure diastolic 2023-07-15 11:00:00 76 mm[Hg] [facility] height 2023-05-27 09:00:00 65.25 [in_i] Com [facility] weight 2023-05-27 09:00:00 209.6 [lb_av] Co mmon [facility] temperature 2023-05-27 09:00:00 97.9 [degF] Com [facility] bmi 2023-05-27 09:00:00 34.61 kg/m2 Comm on [facility] oximetry 2023-05-27 09:00:00 98 % Commo n [facility] respiratory rate 2023-05-27 09:00:00 16 /min [facility] blood pressure systolic 2023-05-27 09:00:00 126 mm[Hg] Common [facility]iri [facility] blood pressure diastolic 2023-05-27 09:00:00 72 mm[Hg] Common [facility] height 2023-04-01 08:20:00 65.25 [in_i] Com [facility] weight 2023-04-01 08:20:00 209.2 [lb_av] Co mmon [facility] temperature 2023-04-01 08:20:00 96.8 [degF] Com [facility] bmi 2023-04-01 08:20:00 34.54 kg/m2 Comm on [facility] oximetry 2023-04-01 08:20:00 98 % Commo n [facility] respiratory rate 2023-04-01 08:20:00 16 /min [facility] blood pressure systolic 2023-04-01 08:20:00 122 mm[Hg] Common [facility] blood pressure diastolic 2023-04-01 08:20:00 88 mm[Hg] Common [facility] height 2023-01-07 08:00:00 65.25 [in_i] Com [facility] weight 2023-01-07 08:00:00 210 [lb_av] Comm on [facility] temperature 2023-01-07 08:00:00 97.1 [degF] Com [facility] bmi 2023-01-07 08:00:00 34.67 kg/m2 Comm on [facility] oximetry 2023-01-07 08:00:00 97 % Commo n [facility] respiratory rate 2023-01-07 08:00:00 16 /min [facility] blood pressure systolic 2023-01-07 08:00:00 124 mm[Hg] [facility] diastolic 2023-01-07 08:00:00 72 mm[Hg] Common [facility] height 2022-11-15 08:20:00 65.25 [in_i] Com [facility] weight 2022-11-15 08:20:00 210 [lb_av] Comm on [facility] temperature 2022-11-15 08:20:00 97.5 [degF] Com [facility] bmi 2022-11-15 08:20:00 34.67 kg/m2 Comm on [facility] oximetry 2022-11-15 08:20:00 98 % Commo n [facility] respiratory rate 2022-11-15 08:20:00 16 /min Common [facility] blood pressure systolic 2022-11-15 08:20:00 134 mm[Hg] [facility] blood pressure diastolic 2022-11-15 08:20:00 82 mm[Hg] [facility] height 2022-11-15 08:00:00 65.25 [in_i] Com [facility] weight 2022-11-15 08:00:00 210 [lb_av] Comm on [facility] temperature 2022-11-15 08:00:00 97.5 [degF] Com [facility] bmi 2022-11-15 08:00:00 34.67 kg/m2 Comm on [facility] oximetry 2022-11-15 08:00:00 98 % Commo n [facility] respiratory rate 2022-11-15 08:00:00 16 /min Common [facility] blood pressure systolic 2022-11-15 08:00:00 134 mm[Hg] Common [facility] blood pressure diastolic 2022-11-15 08:00:00 82 mm[Hg] Common [facility] height 2022-01-08 08:40:00 65.25 [in_i] Com [facility] weight 2022-01-08 08:40:00 210.4 [lb_av] Co mmon [facility] temperature 2022-01-08 08:40:00 96.7 [degF] Com [facility] bmi 2022-01-08 08:40:00 34.74 kg/m2 Comm on [facility] oximetry 2022-01-08 08:40:00 98 % Commo n [facility] respiratory rate 2022-01-08 08:40:00 18 /min Common [facility] blood pressure systolic 2022-01-08 08:40:00 128 mm[Hg] Common [facility] blood pressure diastolic 2022-01-08 08:40:00 74 mm[Hg] [facility] height 2022-01-08 08:20:00 65.25 [in_i] Com [facility] weight 2022-01-08 08:20:00 210.4 [lb_av] Co mmon [facility] temperature 2022-01-08 08:20:00 96.7 [degF] Com [facility] bmi 2022-01-08 08:20:00 34.74 kg/m2 Comm on [facility] oximetry 2022-01-08 08:20:00 98 % Commo n [facility] respiratory rate 2022-01-08 08:20:00 18 /min [facility] blood pressure systolic 2022-01-08 08:20:00 128 mm[Hg] Common [facility]iri [facility] blood pressure diastolic 2022-01-08 08:20:00 74 mm[Hg] [facility] height 2021-07-12 08:20:00 65.25 [in_i] Com [facility] weight 2021-07-12 08:20:00 211 [lb_av] Comm on [facility] temperature 2021-07-12 08:20:00 97.1 [degF] Com [facility] bmi 2021-07-12 08:20:00 34.84 kg/m2 Comm on [facility] oximetry 2021-07-12 08:20:00 98 % Commo n [facility] respiratory rate 2021-07-12 08:20:00 16 /min [facility] blood pressure systolic 2021-07-12 08:20:00 134 mm[Hg] [facility] blood pressure diastolic 2021-07-12 08:20:00 80 mm[Hg] [facility] height 2021-04-06 08:20:00 65.25 [in_i] Com [facility] weight 2021-04-06 08:20:00 211 [lb_av] Comm on [facility] temperature 2021-04-06 08:20:00 97.3 [degF] Com [facility] bmi 2021-04-06 08:20:00 34.84 kg/m2 Comm on [facility] oximetry 2021-04-06 08:20:00 98 % Commo n [facility] respiratory rate 2021-04-06 08:20:00 20 /min [facility] blood pressure systolic 2021-04-06 08:20:00 136 mm[Hg] [facility] blood pressure diastolic 2021-04-06 08:20:00 78 mm[Hg] [facility] Encounters Start Date/Time End Date/Time Encounter Type Admission Type Attending Clinicians Care Facility Care Department Encounter ID Source 2022-09-18 08:51:01 Outpatient Celeste Irvin STLMLC STLMLC [id number] [facility] 2022-07-01 07:56:00 Outpatient Lisha Cloud STLC [id number] [facility] 2021-08-08 14:29:15 Outpatient Lisha Cloud STDEBORAHLC STLC [id number] [facility] 2021-08-08 14:28:52 Outpatient Cloud, Na STLMLC STLMLC [id number] [facility] 2021-08-08 13:18:56 Outpatient Cloud, Na STLMLC STLMLC [id number] [facility] 2021-08-08 13:18:03 Outpatient Cloud, Na STLMLC STLMLC [id number] [facility] 2021-08-08 12:50:13 Outpatient Cloud, Na STLMLC STLMLC [id number] [facility] 2021-08-08 12:42:17 Outpatient Cloud, Na STLMLC STLMLC [id number] [facility] 2021-08-08 12:39:59 Outpatient Cloud, Na STLMLC STLMLC [id number] [facility] 2021-08-08 12:18:42 Outpatient STLMLC STLMLC [id number] [facility] 2021-08-08 11:35:02 Outpatient Cassy Aden STLMLC STLMLC [id number] [facility] 2021-08-08 11:34:15 Outpatient Wagner Adenen STLMLC STLMLC [id number] [facility] 2021-08-08 10:58:51 Outpatient Cassy Aden STLMLC STLMLC [id number] [facility] 2021-08-08 10:57:57 Outpatient Wagner Adenen STLMLC STLMLC [id number] [facility] 2023-09-05 00:00:00 2023-09-05 00:00:00 (TEL) STLMLC STLMLC [id number] [facility] 2023-09-04 00:00:00 2023-09-04 00:00:00 OFFICE VISIT ESTAB PT LEVEL 4 STLMLC STLMLC [id number] [facility] 2023-09-01 00:00:00 2023-09-01 00:00:00 (TEL) STLMLC STLMLC [id number] [facility] 2023-07-15 00:00:00 2023-07-15 00:00:00 OFFICE VISIT ESTAB PT LEVEL 4 STLMLC STLMLC [id number] [facility] 2023-07-15 00:00:00 2023-07-15 00:00:00 SUB ANNUAL MCR WELLNESS VISIT STLMLC STLMLC [id number] [facility] 2023-05-27 00:00:00 2023-05-27 00:00:00 OFFICE VISIT ESTAB PT LEVEL 4 STLMLC STLMLC [id number] [facility] 2023-04-01 00:00:00 2023-04-01 00:00:00 OFFICE VISIT ESTAB PT LEVEL 4 STLMLC STLMLC [id number] [facility] 2023-01-07 00:00:00 2023-01-07 00:00:00 OFFICE VISIT ESTAB PT LEVEL 4 STLMLC STLMLC [id number] [facility] 2022-11-15 00:00:00 2022-11-15 00:00:00 OFFICE VISIT ESTAB PT LEVEL 4 STLMLC STLMLC [id number] [facility] 2022-11-15 00:00:00 2022-11-15 00:00:00 SUB ANNUAL MCR WELLNESS VISIT STLMLC STLMLC [id number] [facility] 2022-07-03 00:00:00 2022-07-03 00:00:00 OL DIG E/M SVC 11-20 MIN STLMLC STLMLC [id number] [facility] 2022-01-08 00:00:00 2022-01-08 00:00:00 SUB ANNUAL MCR WELLNESS VISIT STLMLC STLMLC [id number] [facility] 2022-01-08 00:00:00 2022-01-08 00:00:00 OFFICE VISIT EST PT LEVEL 3 STLMLC STLMLC [id number] [facility] 2021-11-22 00:00:00 2021-11-22 00:00:00 (TEL) STLMLC STLMLC [id number] [facility] 2021-07-12 00:00:00 2021-07-12 00:00:00 OFFICE VISIT ESTAB PT LEVEL 4 STLMLC STLMLC [id number] [facility] 2021-05-03 00:00:00 2021-05-03 00:00:00 (TEL) STLMLC STLMLC [id number] [facility] 2021-04-06 00:00:00 2021-04-06 00:00:00 OFFICE VISIT EST PT LEVEL 3 STLMLC STLMLC [id number] [facility] 2021-02-28 00:00:00 2021-02-28 00:00:00 (TEL) STLMLC STLMLC [id number] [facility] 2021-02-21 00:00:00 2021-02-21 00:00:00 (TEL) STLMLC STLMLC [id number] [facility] 2021-01-04 00:00:00 2021-01-04 00:00:00 Outpatient STLMLC STLMLC [id number] [facility] 2021-01-04 00:00:00 2021-01-04 00:00:00 Outpatient STLMLC STLMLC [id number] [facility] 2020-09-25 00:00:00 2020-09-25 00:00:00 Outpatient STLMLC STLMLC [id number] [facility] 2020-09-11 00:00:00 2020-09-11 00:00:00 Outpatient STLMLC STLMLC [id number] [facility] 2020-09-06 00:00:00 2020-09-06 00:00:00 Outpatient STLMLC STLMLC [id number] [facility] 2020-07-19 00:00:00 2020-07-19 00:00:00 Outpatient STLMLC STLMLC [id number] [facility] 2020-02-16 09:20:00 2020-02-16 09:20:[address] [facility] [id number] [facility] 2020-02-16 08:40:00 2020-02-16 08:40:[address] [facility] [id number] [facility] 2019-07-19 09:45:00 2019-07-19 09:45:[address] [facility] [id number] [facility] 2019-01-19 09:40:00 2019-01-19 09:40:[address] [facility] [facility] [id number] [facility] 2018-08-04 13:15:00 2018-08-04 13:15:[address] [facility] [facility] [id number] [facility] 2018-07-22 22:09:00 2018-07-22 22:09:[address] [facility] [id number] [facility] 2018-07-22 09:15:00 2018-07-22 09:15:[address] [facility] [id number] [facility] 2018-04-21 15:15:00 2018-04-21 15:15:[address] [facility] [facility] [id number] [facility] 2018-04-06 10:45:00 2018-04-06 10:45:[address] [facility] [facility] [id number] [facility] 2018-03-12 14:08:00 2018-03-12 14:08:[address] [facility] [id number] [facility] 2017-12-26 11:15:2017-12-26 11:15:00 [facility] [id number] [facility] Results Test Description Test Time Test Comments Results Result Co mments Source VITAMIN D, 25 [id number] 00:00:00* Test Item Value Reference Range Interpretation Comme nts VITAMIN D, 25 OH (test code = 1989-3) 26 NG/ML SEE BELOW NG/ML L TSH + FREE T4 [id number] 00:00:00* Test Item Value Reference Range Interpretation Comme nts FREE T4 (THYROXINE) (test code = 3024-7) 1.54 NG/DL See_Comment [Automated message] The system which generated this result transmitted reference range: 0.80-1.90 NG/DL. The reference range was not used to interpret this result as normal/abnormal. TSH, THIRD GENERATION (test code = 26927-4) 0.166 UIU/ML See_Comment L [Automated messa ge] The system which generated this result transmitted reference range: 0.400-4.100 UIU/ML. The reference range was not used to interpret this result as normal/abnormal. COMPREHENSIVE METABOLIC [id number] 00:00:00* Test Item Value Reference Range Interpretation Comme nts ALBUMIN (test code = 1751-7) 3.9 G/DL See_Comment [Automated messa ge] The system which generated this result transmitted reference range: 3.5-5.2 G/DL. The reference range was not used to interpret this result as normal/abnormal. ALKALINE PHOSPHATASE (test code = 6768-6) 93 U/L See_Comment [Automated message] The system which generated this result transmitted reference range: 40-142 U/L. The reference range was not used to interpret this result as normal/abnormal. BILIRUBIN, TOTAL (test code = 1975-2) 0.4 MG/DL See_Comment [Automated message] The system which generated this result transmitted reference range: <=1.2 MG/DL. The reference range was not used to interpret this result as normal/abnormal. BUN (test code = 3094-0) 14 MG/DL See_Comment [Automated messa ge] The system which generated this result transmitted reference range: 8-23 MG/DL. The reference range was not used to interpret this result as normal/abnormal. CALCIUM (test code = 44279-6) 9.4 MG/DL See_Comment [Automated messa ge] The system which generated this result transmitted reference range: 8.5-10.5 MG/DL. The reference range was not used to interpret this result as normal/abnormal. CALC A/G RATIO (test code = 1759-0) 1.7 RATIO See_Comment [Automated messa ge] The system which generated this result transmitted reference range: 1.0-2.6 RATIO. The reference range was not used to interpret this result as normal/abnormal. CALC BUN/CREAT (test code = 3097-3) 14 RATIO See_Comment [Automated messa ge] The system which generated this result transmitted reference range: 6-28 RATIO. The reference range was not used to interpret this result as normal/abnormal. CALC GLOBULIN (test code = 42905-0) 2.3 G/DL See_Comment [Automated messa ge] The system which generated this result transmitted reference range: 1.9-3.7 G/DL. The reference range was not used to interpret this result as normal/abnormal. CARBON DIOXIDE (test code = 1963-8) 25 MEQ/L See_Comment [Automated messa ge] The system which generated this result transmitted reference range: 19-31 MEQ/L. The reference range was not used to interpret this result as normal/abnormal. CHLORIDE (test code = 2075-0) 104 MEQ/L See_Comment [Automated messa ge] The system which generated this result transmitted reference range: 95-107 MEQ/L. The reference range was not used to interpret this result as normal/abnormal. CREATININE (test code = 2160-0) 1.00 MG/DL See_Comment [Automated messa ge] The system which generated this result transmitted reference range: 0.60-1.30 MG/DL. The reference range was not used to interpret this result as normal/abnormal. eGFR (2020 CKD-EPI) (test code = 95882-2) 59 ML/MIN/1.73 See_Comment L [Automated messa ge] The system which generated this result transmitted reference range: >60 ML/MIN/1.73. The reference range was not used to interpret this result as normal/abnormal. GLUCOSE (test code = 1558-6) 219 MG/DL See_Comment H [Automated messa ge] The system which generated this result transmitted reference range: 70-99 MG/DL. The reference range was not used to interpret this result as normal/abnormal. POTASSIUM (test code = 2823-3) 4.8 MEQ/L See_Comment [Automated messa ge] The system which generated this result transmitted reference range: 3.5-5.4 MEQ/L. The reference range was not used to interpret this result as normal/abnormal. PROTEIN, TOTAL (test code = 2885-2) 6.2 G/DL See_Comment [Automated messa ge] The system which generated this result transmitted reference range: 6.1-8.3 G/DL. The reference range was not used to interpret this result as normal/abnormal. AST (test code = 1920-8) 14 U/L See_Comment [Automated messa ge] The system which generated this result transmitted reference range: 9-40 U/L. The reference range was not used to interpret this result as normal/abnormal. ALT (test code = 1742-6) 19 U/L See_Comment [Automated messa ge] The system which generated this result transmitted reference range: 5-40 U/L. The reference range was not used to interpret this result as normal/abnormal. SODIUM (test code = 2951-2) 140 MEQ/L See_Comment [Automated messa ge] The system which generated this result transmitted reference range: 133-146 MEQ/L. The reference range was not used to interpret this result as normal/abnormal. TSH + FREE T4 [id number] 00:00:00* Test Item Value Reference Range Interpretation Comme nts FREE T4 (THYROXINE) (test code = 3024-7) 2.04 NG/DL See_Comment H [Automated message] The system which generated this result transmitted reference range: 0.80-1.90 NG/DL. The reference range was not used to interpret this result as normal/abnormal. TSH, THIRD GENERATION (test code = 18286-9) 0.129 UIU/ML See_Comment L [Automated messa ge] The system which generated this result transmitted reference range: 0.400-4.100 UIU/ML. The reference range was not used to interpret this result as normal/abnormal. CBC W/AUTO [id number] 00:00:00* Test Item Value Reference Range Interpretation Comme nts NUCLEATED RBCS (test code = 00885-9) 0.0 /100 WBC'S See_Comment [Automated messa ge] The system which generated this result transmitted reference range: 0.0 /100 WBC'S. The reference range was not used to interpret this result as normal/abnormal. ABSOLUTE EOSINOPHILS (test code = 11232-5) 0.25 K/UL See_Comment [Automated messa ge] The system which generated this result transmitted reference range: 0.00-0.50 K/UL. The reference range was not used to interpret this result as normal/abnormal. ABSOLUTE LYMPHOCYTES (test code = 60289-0) 3.21 K/UL See_Comment [Automated messa ge] The system which generated this result transmitted reference range: 1.00-4.00 K/UL. The reference range was not used to interpret this result as normal/abnormal. ABSOLUTE MONOCYTES (test code = 89739-5) 0.69 K/UL See_Comment [Automated messa ge] The system which generated this result transmitted reference range: 0.20-1.00 K/UL. The reference range was not used to interpret this result as normal/abnormal. ABSOLUTE NEUTROPHILS (test code = 43639-8) 5.66 K/UL See_Comment [Automated messa ge] The system which generated this result transmitted reference range: 1.50-7.50 K/UL. The reference range was not used to interpret this result as normal/abnormal. BASOPHILS (test code = 02889-0) 0.8 % EOSINOPHILS (test code = 22043-5) 2.5 % HEMATOCRIT (test code = 96106-6) 43.0 % See_Comment [Automated messa ge] The system which generated this result transmitted reference range: 34.0-45.0 %. The reference range was not used to interpret this result as normal/abnormal. HEMOGLOBIN (test code = 718-7) 14.4 G/DL See_Comment [Automated messa ge] The system which generated this result transmitted reference range: 11.5-15.5 G/DL. The reference range was not used to interpret this result as normal/abnormal. LYMPHOCYTES (test code = 08011-0) 32.4 % MCH (test code = 34958-9) 31.2 PG See_Comment [Automated messa ge] The system which generated this result transmitted reference range: 25.0-33.0 PG. The reference range was not used to interpret this result as normal/abnormal. MCHC (test code = 40271-6) 33.5 G/DL See_Comment [Automated messa ge] The system which generated this result transmitted reference range: 31.0-36.0 G/DL. The reference range was not used to interpret this result as normal/abnormal. MCV (test code = 56594-5) 93.1 fL See_Comment [Automated messa ge] The system which generated this result transmitted reference range: 80.0-99.0 fL. The reference range was not used to interpret this result as normal/abnormal. MONOCYTES (test code = 04557-8) 7.0 % NEUTROPHILS (test code = 04886-1) 57.1 % PLATELET COUNT (test code = 87506-8) 325 K/UL See_Comment [Automated messa ge] The system which generated this result transmitted reference range: 130-400 K/UL. The reference range was not used to interpret this result as normal/abnormal. RBC (test code = 74551-0) 4.62 M/UL See_Comment [Automated messa ge] The system which generated this result transmitted reference range: 3.80-5.40 M/UL. The reference range was not used to interpret this result as normal/abnormal. RDW (test code = 36261-4) 12.4 % See_Comment [Automated messa ge] The system which generated this result transmitted reference range: 11.5-15.0 %. The reference range was not used to interpret this result as normal/abnormal. WBC (test code = 09348-3) 9.9 K/UL See_Comment [Automated messa ge] The system which generated this result transmitted reference range: 3.5-11.0 K/UL. The reference range was not used to interpret this result as normal/abnormal. VITAMIN D,1,85-[id number] 00:00:00* Test Item Value Reference Range Interpretation Comme nts VITAMIN D,1,25-DIHYDROXY (test code = 1649-3) 49.3 PG/ML See_Comment [Automated message] The system which generated this result transmitted reference range: 20.0-82.0 PG/ML. The reference range was not used to interpret this result as normal/abnormal. TSH + FREE T4 [id number] 00:00:00* Test Item Value Reference Range Interpretation Comme nts FREE T4 (THYROXINE) (test code = 3024-7) 1.08 NG/DL See_Comment [Automated message] The system which generated this result transmitted reference range: 0.80-1.90 NG/DL. The reference range was not used to interpret this result as normal/abnormal. TSH, THIRD GENERATION (test code = 03658-6) 16.800 UIU/ML See_Comment H [Automated messa ge] The system which generated this result transmitted reference range: 0.400-4.100 UIU/ML. The reference range was not used to interpret this result as normal/abnormal. COMPREHENSIVE METABOLIC [id number] 00:00:00* Test Item Value Reference Range Interpretation Comme nts ALBUMIN (test code = 1751-7) 4.4 G/DL See_Comment [Automated messa ge] The system which generated this result transmitted reference range: 3.5-5.2 G/DL. The reference range was not used to interpret this result as normal/abnormal. ALKALINE PHOSPHATASE (test code = 6768-6) 94 U/L See_Comment [Automated message] The system which generated this result transmitted reference range: 40-142 U/L. The reference range was not used to interpret this result as normal/abnormal. BILIRUBIN, TOTAL (test code = 1975-2) 0.4 MG/DL See_Comment [Automated message] The system which generated this result transmitted reference range: <=1.2 MG/DL. The reference range was not used to interpret this result as normal/abnormal. BUN (test code = 3094-0) 21 MG/DL See_Comment [Automated messa ge] The system which generated this result transmitted reference range: 8-23 MG/DL. The reference range was not used to interpret this result as normal/abnormal. CALCIUM (test code = 38953-6) 9.8 MG/DL See_Comment [Automated messa ge] The system which generated this result transmitted reference range: 8.5-10.5 MG/DL. The reference range was not used to interpret this result as normal/abnormal. CALC A/G RATIO (test code = 1759-0) 1.8 RATIO See_Comment [Automated messa ge] The system which generated this result transmitted reference range: 1.0-2.6 RATIO. The reference range was not used to interpret this result as normal/abnormal. CALC BUN/CREAT (test code = 3097-3) 19 RATIO See_Comment [Automated messa ge] The system which generated this result transmitted reference range: 6-28 RATIO. The reference range was not used to interpret this result as normal/abnormal. CALC GLOBULIN (test code = 34298-9) 2.4 G/DL See_Comment [Automated messa ge] The system which generated this result transmitted reference range: 1.9-3.7 G/DL. The reference range was not used to interpret this result as normal/abnormal. CARBON DIOXIDE (test code = 1963-8) 25 MEQ/L See_Comment [Automated messa ge] The system which generated this result transmitted reference range: 19-31 MEQ/L. The reference range was not used to interpret this result as normal/abnormal. CHLORIDE (test code = 2075-0) 105 MEQ/L See_Comment [Automated messa ge] The system which generated this result transmitted reference range: 95-107 MEQ/L. The reference range was not used to interpret this result as normal/abnormal. CREATININE (test code = 2160-0) 1.12 MG/DL See_Comment [Automated messa ge] The system which generated this result transmitted reference range: 0.60-1.30 MG/DL. The reference range was not used to interpret this result as normal/abnormal. eGFR (2020 CKD-EPI) (test code = 17860-7) 52 ML/MIN/1.73 See_Comment L [Automated messa ge] The system which generated this result transmitted reference range: >60 ML/MIN/1.73. The reference range was not used to interpret this result as normal/abnormal. GLUCOSE (test code = 1558-6) 116 MG/DL See_Comment H [Automated messa ge] The system which generated this result transmitted reference range: 70-99 MG/DL. The reference range was not used to interpret this result as normal/abnormal. POTASSIUM (test code = 2823-3) 4.6 MEQ/L See_Comment [Automated messa ge] The system which generated this result transmitted reference range: 3.5-5.4 MEQ/L. The reference range was not used to interpret this result as normal/abnormal. PROTEIN, TOTAL (test code = 2885-2) 6.8 G/DL See_Comment [Automated messa ge] The system which generated this result transmitted reference range: 6.1-8.3 G/DL. The reference range was not used to interpret this result as normal/abnormal. AST (test code = 1920-8) 15 U/L See_Comment [Automated messa ge] The system which generated this result transmitted reference range: 9-40 U/L. The reference range was not used to interpret this result as normal/abnormal. ALT (test code = 1742-6) 15 U/L See_Comment [Automated messa ge] The system which generated this result transmitted reference range: 5-40 U/L. The reference range was not used to interpret this result as normal/abnormal. SODIUM (test code = 2951-2) 142 MEQ/L See_Comment [Automated messa ge] The system which generated this result transmitted reference range: 133-146 MEQ/L. The reference range was not used to interpret this result as normal/abnormal. CBC W/AUTO [id number] 00:00:00* Test Item Value Reference Range Interpretation Comme nts NUCLEATED RBCS (test code = 28459-0) 0.0 /100 WBC'S See_Comment [Automated messa ge] The system which generated this result transmitted reference range: 0.0 /100 WBC'S. The reference range was not used to interpret this result as normal/abnormal. ABSOLUTE EOSINOPHILS (test code = 28997-4) 0.21 K/UL See_Comment [Automated messa ge] The system which generated this result transmitted reference range: 0.00-0.50 K/UL. The reference range was not used to interpret this result as normal/abnormal. ABSOLUTE LYMPHOCYTES (test code = 48370-6) 2.53 K/UL See_Comment [Automated messa ge] The system which generated this result transmitted reference range: 1.00-4.00 K/UL. The reference range was not used to interpret this result as normal/abnormal. ABSOLUTE MONOCYTES (test code = 39997-8) 0.61 K/UL See_Comment [Automated messa ge] The system which generated this result transmitted reference range: 0.2-3.8 K/UL. The reference range was not used to interpret this result as normal/abnormal. ABSOLUTE NEUTROPHILS (test code = 24367-0) 4.20 K/UL See_Comment [Automated messa ge] The system which generated this result transmitted reference range: 1.50-7.50 K/UL. The reference range was not used to interpret this result as normal/abnormal. BASOPHILS (test code = 08831-5) 1.0 % EOSINOPHILS (test code = 44593-5) 2.7 % HEMATOCRIT (test code = 83338-9) 42.3 % See_Comment [Automated messa ge] The system which generated this result transmitted reference range: 34.0-45.0 %. The reference range was not used to interpret this result as normal/abnormal. HEMOGLOBIN (test code = 718-7) 14.2 G/DL See_Comment [Automated messa ge] The system which generated this result transmitted reference range: 11.5-15.5 G/DL. The reference range was not used to interpret this result as normal/abnormal. LYMPHOCYTES (test code = 19914-8) 33.1 % MCH (test code = 75215-6) 30.8 PG See_Comment [Automated messa ge] The system which generated this result transmitted reference range: 25.0-33.0 PG. The reference range was not used to interpret this result as normal/abnormal. MCHC (test code = 62899-8) 33.6 G/DL See_Comment [Automated messa ge] The system which generated this result transmitted reference range: 31.0-36.0 G/DL. The reference range was not used to interpret this result as normal/abnormal. MCV (test code = 44694-1) 91.8 fL See_Comment [Automated messa ge] The system which generated this result transmitted reference range: 80.0-99.0 fL. The reference range was not used to interpret this result as normal/abnormal. MONOCYTES (test code = 70857-0) 8.0 % NEUTROPHILS (test code = 59786-1) 54.9 % PLATELET COUNT (test code = 77348-0) 307 K/UL See_Comment [Automated messa ge] The system which generated this result transmitted reference range: 130-400 K/UL. The reference range was not used to interpret this result as normal/abnormal. RBC (test code = 47262-0) 4.61 M/UL See_Comment [Automated messa ge] The system which generated this result transmitted reference range: 3.80-5.40 M/UL. The reference range was not used to interpret this result as normal/abnormal. RDW (test code = 40907-1) 12.0 % See_Comment [[employer]] The system which generated this result transmitted reference range: 11.5-15.0 %. The reference range was not used to interpret this result as normal/abnormal. WBC (test code = 82115-2) 7.7 K/UL See_Comment [Automated messa ge] The system which generated this result transmitted reference range: 3.5-11.0 K/UL. The reference range was not used to interpret this result as normal/abnormal. LIPID PANEL WITH REFLEX DIRECT [id number] 00:00:00* Test Item Value Reference Range Interpretation Comme nts CALC LDL CHOL (test code = 88499-7) 82 MG/DL See_Comment [[employer]] The system which generated this result transmitted reference range: <100 MG/DL. The reference range was not used to interpret this result as normal/abnormal. CHOLESTEROL (test code = 2093-3) 145 MG/DL See_Comment [[employer]] The system which generated this result transmitted reference range: <200 MG/DL. The reference range was not used to interpret this result as normal/abnormal. HDL CHOLESTEROL (test code = 2085-9) 43 MG/DL See_Comment [[employer]] The system which generated this result transmitted reference range: >39 MG/DL. The reference range was not used to interpret this result as normal/abnormal. RISK RATIO LDL/HDL (test code = 92953-7) 1.91 RATIO See_Comment [Automated message] The system which generated this result transmitted reference range: <3.22 RATIO. The reference range was not used to interpret this result as normal/abnormal. TRIGLYCERIDES (test code = 2571-8) 102 MG/DL See_Comment [[employer]] The system which generated this result transmitted reference range: <150 MG/DL. The reference range was not used to interpret this result as normal/abnormal. TSH + FREE T4 [id number] 00:00:00* Test Item Value Reference Range Interpretation Comme nts FREE T4 (THYROXINE) (test code = 3024-7) 1.72 NG/DL See_Comment [Automated message] The system which generated this result transmitted reference range: 0.80-1.90 NG/DL. The reference range was not used to interpret this result as normal/abnormal. TSH, THIRD GENERATION (test code = 30944-2) 1.160 UIU/ML See_Comment [Automated messa ge] The system which generated this result transmitted reference range: 0.400-4.100 UIU/ML. The reference range was not used to interpret this result as normal/abnormal. COMPREHENSIVE METABOLIC [id number] 00:00:00* Test Item Value Reference Range Interpretation Comme nts ALBUMIN (test code = 1751-7) 4.0 G/DL See_Comment [Automated messa ge] The system which generated this result transmitted reference range: 3.5-5.2 G/DL. The reference range was not used to interpret this result as normal/abnormal. ALKALINE PHOSPHATASE (test code = 6768-6) 86 U/L See_Comment [Automated message] The system which generated this result transmitted reference range: 40-142 U/L. The reference range was not used to interpret this result as normal/abnormal. BILIRUBIN, TOTAL (test code = 1975-2) 0.4 MG/DL See_Comment [Automated message] The system which generated this result transmitted reference range: <=1.2 MG/DL. The reference range was not used to interpret this result as normal/abnormal. BUN (test code = 3094-0) 14 MG/DL See_Comment [Automated messa ge] The system which generated this result transmitted reference range: 8-23 MG/DL. The reference range was not used to interpret this result as normal/abnormal. CALCIUM (test code = 50503-5) 9.5 MG/DL See_Comment [Automated messa ge] The system which generated this result transmitted reference range: 8.5-10.5 MG/DL. The reference range was not used to interpret this result as normal/abnormal. CALC A/G RATIO (test code = 1759-0) 1.5 RATIO See_Comment [[employer]] The system which generated this result transmitted reference range: 1.0-2.6 RATIO. The reference range was not used to interpret this result as normal/abnormal. CALC BUN/CREAT (test code = 3097-3) 13 RATIO See_Comment [Automated messa ge] The system which generated this result transmitted reference range: 6-28 RATIO. The reference range was not used to interpret this result as normal/abnormal. CALC GLOBULIN (test code = 10528-4) 2.6 G/DL See_Comment [Automated messa ge] The system which generated this result transmitted reference range: 1.9-3.7 G/DL. The reference range was not used to interpret this result as normal/abnormal. CARBON DIOXIDE (test code = 1963-8) 27 MEQ/L See_Comment [Automated messa ge] The system which generated this result transmitted reference range: 19-31 MEQ/L. The reference range was not used to interpret this result as normal/abnormal. CHLORIDE (test code = 2075-0) 105 MEQ/L See_Comment [Automated messa ge] The system which generated this result transmitted reference range: 95-107 MEQ/L. The reference range was not used to interpret this result as normal/abnormal. CREATININE (test code = 2160-0) 1.06 MG/DL See_Comment [Automated messa ge] The system which generated this result transmitted reference range: 0.60-1.30 MG/DL. The reference range was not used to interpret this result as normal/abnormal. eGFR (2020 CKD-EPI) (test code = 66965-2) 55 ML/MIN/1.73 See_Comment L [Automated messa ge] The system which generated this result transmitted reference range: >60 ML/MIN/1.73. The reference range was not used to interpret this result as normal/abnormal. GLUCOSE (test code = 1558-6) 118 MG/DL See_Comment H [Automated messa ge] The system which generated this result transmitted reference range: 70-99 MG/DL. The reference range was not used to interpret this result as normal/abnormal. POTASSIUM (test code = 2823-3) 5.0 MEQ/L See_Comment [Automated messa ge] The system which generated this result transmitted reference range: 3.5-5.4 MEQ/L. The reference range was not used to interpret this result as normal/abnormal. PROTEIN, TOTAL (test code = 2885-2) 6.6 G/DL See_Comment [Automated messa ge] The system which generated this result transmitted reference range: 6.1-8.3 G/DL. The reference range was not used to interpret this result as normal/abnormal. AST (test code = 1920-8) 17 U/L See_Comment [Automated messa ge] The system which generated this result transmitted reference range: 9-40 U/L. The reference range was not used to interpret this result as normal/abnormal. ALT (test code = 1742-6) 20 U/L See_Comment [Automated messa ge] The system which generated this result transmitted reference range: 5-40 U/L. The reference range was not used to interpret this result as normal/abnormal. SODIUM (test code = 2951-2) 139 MEQ/L See_Comment [Automated messa ge] The system which generated this result transmitted reference range: 133-146 MEQ/L. The reference range was not used to interpret this result as normal/abnormal.
[2023-10-22] MEDS ORDERED: NA CHLORIDE 0.9% 1,000 ML ONE (16:11)
[2023-10-22 16:23] LABS: Absolute Eosinophils 0.2 K/uL (0-0.5); Absolute Lymphocytes (CBC) 2.8 K/uL (0.7-4.9); Absolute Monocytes 0.8 K/uL (0.1-1.3); Absolute Neutrophil 3.6 K/uL (1.8-8.0); Basophils % 0.6 % (0-1.3); Hematocrit 46.3 % (36.0-45.0); Hemoglobin 15.3 g/dL (12.0-15.0); Lymphocytes % 37.3 % (15.3-44.8); MCH 30.3 pg (27.0-35.0); MCV 91.7 fL (80-100); MPV 9.9 fL (7.6-11.3); Monocytes % 11.1 % (3.3-12.3); Platelets 251 thou/uL (152-406); RBC Red Blood Cell Count 5.05 M/uL (3.86-4.86); Red Cell Distribution Width 13.7 % (12.1-15.2)
[2023-10-22 16:43] LABS: Magnesium 2.2 mg/dL (1.6-2.4); Troponin High Sensitivity 5.8 pg/mL (<58.9)
--- NOTE | 2023-10-22 16:44 | RAD REPORT ---
EXAM DESCRIPTION: Jennifer Single View10/22/2023 4:21 pm CLINICAL HISTORY: Shortness of breath COMPARISON: 2018 FINDINGS: The lungs appear clear of acute infiltrate. The heart is mildly enlarged IMPRESSION: No acute abnormalities displayed
[2023-10-22] MEDS ORDERED: dilTIAZem HCL 25 MG/5 ML VIAL IV ONE (17:08)
--- NOTE | 2023-10-22 18:26 | EDPHYS ---
Physician Documentation [facility] Name: Julieth Stevenson Age: 72 yrs Sex: Female : 1950 Arrival Date: 10/22/2023 Time: 15:04 Bed 8 Private MD: ED Physician Vic Pérez HPI: 10/21 16:54 This 72 yrs old Female presents to ER via Ambulatory with complaints of Abnormal EKG. ci 16:54 Patient is a 72-year-old female with PMH thyroid disorder, A-fib on Eliquis who ci presents to the ED with chief complaint abnormal EKG from urgent care. Patient was found to have A-fib RVR, sent for further eval. Initially presented to urgent care for URI symptoms x 5 days. Endorses cough, congestion, shortness of breath. Cough is productive with clear phlegm. She had flu and COVID done at urgent care that was negative.. Historical: - Allergies: 15:34 No Known Allergies; nj1 - PMHx: 15:34 Thyroid problem; Atrial fibrillation; nj1 - Immunization history:: Client reports having NOT received the Covid vaccine. - Infectious Disease History:: Denies. - Social history:: Smoking status: Patient denies any tobacco usage or history of. - History obtained from: friend. ROS: 16:58 Constitutional: Negative for chills, and weight loss.+ Fever ci 16:58 Cardiovascular: Negative for chest pain, palpitations, 16:58 Respiratory: Positive for cough, shortness of breath, 16:58 : Negative for urinary symptoms, urinary frequency, burning with urination, Exam: 16:58 Constitutional: This is a well developed, well nourished patient who is awake, alert, ci and in no acute distress. Head/Face: Normocephalic, atraumatic. Eyes: Pupils equal round and reactive to light, extra-ocular motions intact. Lids and lashes normal. Conjunctiva and sclera are non-icteric and not injected. Cornea within normal limits. Periorbital areas with no swelling, redness, or edema. 16:58 ENT: Nares patent. No nasal discharge, no septal abnormalities noted. Tympanic membranes are normal and external auditory canals are clear. Oropharynx with no redness, swelling, or masses, exudates, or evidence of obstruction, uvula midline. Mucous membranes moist. Neck: Trachea midline, no thyromegaly or masses palpated, and no cervical lymphadenopathy. Supple, full range of motion without nuchal rigidity, or vertebral point tenderness. No Meningismus. Chest/axilla: Normal chest wall appearance and motion. Nontender with no deformity. No lesions are appreciated. 16:58 ENT: Nose: 16:58 Cardiovascular: Rate: tachycardic, Rhythm: irregularly irregular, Pulses: no pulse deficits are appreciated, Pulses are 2+ in right radial artery, right dorsalis pedis artery, left radial artery and left dorsalis pedis artery. 16:58 ECG was reviewed by the Attending Physician. Afib RVR, HR 129, QTC 527 ms Vital Signs: 15:33 BP 140 / 107; Pulse 133; Resp 20; Temp 97.1(TE); Pulse Ox 99% on R/A; Weight 90.72 kg; nj1 Height 5 ft. 7 in. ; 17:15 BP 127 / 99; Pulse 75; Resp 14; Pulse Ox 99% on R/A; ph 15:33 Body Mass Index 31.32 (90.72 kg, 170.18 cm) nj1 MDM: 15:26 Patient medically screened. ci 16:58 Differential Diagnosis URI, pneumonia, A-fib RVR, ACS, CHF, viral illness. Data ci reviewed: vital signs, nurses notes, diagnostic data from outside facility, Paperwork from urgent care shows patient had flu and negative test that was negative.. Care significantly affected by the following chronic conditions: Thyroid disorder, A-fib. ED course: Patient presents in A-fib RVR, HR 120s to 147 on the monitor. Was hydrated with IV fluids. Will administer 20 mg Cardizem, consult cardiology. BNP is slightly elevated. Trope negative, ACS unlikely. A-fib likely triggered by URI. Final disposition is pending cardiology consult.. 18:00 ED course: I discussed case with patient's high frequency mill operator Dr. Fitzpatrick to arrange close ci outpatient follow-up to be seen in 2 days, cardiology unable to see in 2 days, sometime next week. Will admit to telemetry orbs overnight. 10/21 15:32 Order name: Basic Metabolic Panel; Complete Time: 16:46 ci 10/21 16:47 Interpretation: Abnormal: CRE 1.26. ci 10/21 15:32 Order name: CBC with Diff; Complete Time: 16:46 ci 10/21 15:32 Order name: Magnesium; Complete Time: 16:46 ci 10/21 15:32 Order name: NT PRO-BNP; Complete Time: 16:46 ci 10/21 16:46 Interpretation: Abnormal: NT PRO-BNP 1222. ci 10/21 15:32 Order name: Troponin HS; Complete Time: 16:46 ci 10/21 16:56 Order name: Add On-Lab ci 10/21 17:03 Order name: Thyroid Stimulating Hormone; Complete Time: 17:31 EDMS 10/21 17:32 Interpretation: Within normal limits. ci 10/21 18:43 Order name: CBC with Automated Diff EDMS 10/21 18:43 Order name: CBC with Automated Diff EDMS 10/21 18:43 Order name: Comprehensive Metabolic Panel EDMS 10/21 18:43 Order name: Comprehensive Metabolic Panel EDMS 10/21 20:14 Order name: Glucose, Ancillary Testing EDMS 10/21 15:32 Order name: XRAY Chest (1 view); Complete Time: 16:46 ci 10/21 16:47 Interpretation: No acute disease: Per Radiologist's finding(s): IMPRESSION: No acute ci abnormalities displayed. 10/21 15:32 Order name: Cardiac monitoring; Complete Time: 15:39 ci 10/21 15:32 Order name: EKG - Nurse/Tech; Complete Time: 15:39 ci 10/21 15:32 Order name: IV Saline Lock; Complete Time: 15:39 ci 10/21 15:32 Order name: Labs collected and sent; Complete Time: 15:39 ci 10/21 15:32 Order name: O2 Per Protocol; Complete Time: 15:39 ci 10/21 15:32 Order name: O2 Sat Monitoring; Complete Time: 15:39 ci Administered Medications: 16:14 Drug: NS 0.9% IV 1000 ml IV at 1000 ml once Route: IV; Rate: 1000 ml; Site: left ph antecubital; 18:17 Follow up: Response: No adverse reaction; IV Status: Completed infusion; IV Intake: ph 1000ml 16:51 CANCELLED (Physician Discretion): diltiazem 5 mg/hr IV at calculated rate See ci Administration Instructions; (standard dilution 125 mg diltiazem mixed in 125 mL NS; final concentration 1mg/mL). Recommended max rate 15 mg/hr; Titrate 5 mg/hr as often as every 15 minutes to achieve goal (see titration policy); Goal parameter HR less than 100 bpm 17:15 Drug: Diltiazem IVP 20 mg IVP once; Over 2 minutes Route: IVP; Site: left antecubital; ph 18:17 Follow up: Response: No adverse reaction ph 19:15 Drug: Doxycycline PO 100 mg PO once Route: PO; jw7 Disposition Summary: 10/22/23 18:25 Hospitalization Ordered Notes: Hospitalization Status: Observation ci Provider: Callie Simental Location: Telemetry/MedSurg (observation) ci Condition: Stable ci Problem: an acute exacerbation ci Symptoms: have improved ci Bed/Room Type: Standard ci Room Assignment: 401(10/22/23 19:06) em1 Diagnosis - Unspecified atrial fibrillation - A-fib RVR ci - Acute bronchitis, unspecified ci Forms: - Medication Reconciliation Form ci - SBAR form ci - Leadership Thank You Letter ci Signatures: Dispatcher [employer] EDJd Valladares em1 Lien Fowler, RN RN Sabrina Chiu, RN RN jw7 Camille Sanchez, RN RN nj1 Vic Pérez ci Corrections: (The following items were deleted from the chart) 15:33 15:33 Chest Single View+RAD.RAD.BRZ ordered. [facility] ED[facility] 16:51 16:49 Diltiazem IV 5 mg/hr IV at calculated rate See Administration Instructions; ci (standard dilution 125 mg diltiazem mixed in 125 mL NS; final concentration 1mg/mL). Recommended max rate 15 mg/hr; Titrate 5 mg/hr as often as every 15 minutes to achieve goal (see titration policy); Goal parameter HR less than 100 bpm ordered. ci 16:57 16:54 Patient is a 72-year-old female with PMH. ci ci 19:06 18:25 ci em1
--- NOTE | 2023-10-22 18:26 | ER ---
Nurse's Notes [facility] Name: Julieth Stevenson Age: 72 yrs Sex: Female : 1950 Arrival Date: 10/22/2023 Time: 15:04 Bed 8 Private MD: Diagnosis: Unspecified atrial [id number] RVR;Acute bronchitis, unspecified Presentation: 10/21 15:12 Chief complaint: Patient states: Cough, congested, dyspnea with exertion for a week. nj1 Went to urgent care, EKG done, sent to ED for further evaluation and treatment. Hx of Afib. 15:12 Method Of Arrival: Ambulatory [facility] 15:33 Coronavirus screen: Vaccine status: Patient reports being unvaccinated. Ebola Screen: nj1 Patient denies travel to an Ebola-affected area in the 21 days before illness onset. Initial Sepsis Screen: Does the patient meet any 2 criteria? HR > 90 bpm. No. Patient's initial sepsis screen is negative. Does the patient have a suspected source of infection? No. Patient's initial sepsis screen is negative. Risk Assessment: Do you want to hurt yourself or someone else? Patient reports no desire to harm self or others. Onset of symptoms was October 2023. 15:33 Acuity: LAST 2 nj1 Historical: - Allergies: 15:34 No Known Allergies; nj1 - PMHx: 15:34 Thyroid problem; Atrial fibrillation; nj1 - Immunization history:: Client reports having NOT received the Covid vaccine. - Infectious Disease History:: Denies. - Social history:: Smoking status: Patient denies any tobacco usage or history of. - History obtained from: friend. Screenin:18 [facility] ED Fall Risk Assessment (Adult) History of falling in the last 3 months, ph including since admission No falls in past 3 months (0 pts) Confusion or Disorientation No (0 pts) Intoxicated or Sedated No (0 pts) Impaired Gait No (0 pts) Mobility Assist Device Used No (0 pt) Altered Elimination No (0 pt) Score/Fall Risk Level 0 - 2 = Low Risk Oriented to surroundings, Maintained a safe environment, Hourly rounding (assess needs \T\ fall precautionary measures) done. Abuse screen: Denies threats or abuse. Denies injuries from another. Nutritional screening: No deficits noted. Tuberculosis screening: No symptoms or risk factors identified. Assessment: 15:30 General: Appears in no apparent distress. comfortable, well groomed, Behavior is calm, ph cooperative, appropriate for age, Reports feeling ill for > 3 days. Pain: Denies pain. Neuro: Level of Consciousness is awake, alert, obeys commands, Oriented to person, place, time, situation. Cardiovascular: Denies chest pain, palpitations, Capillary refill < 3 seconds in bilateral fingers Patient's skin is warm and dry. Rhythm is atrial fibrillation with rapid ventricular response. Respiratory: Reports cough that is Airway is patent Respiratory effort is even, unlabored, Respiratory pattern is regular, symmetrical. Derm: Skin is pink, warm \T\ dry. Musculoskeletal: Circulation, motion, and sensation intact. Range of motion: intact in all extremities. Vital Signs: 15:33 BP 140 / 107; Pulse 133; Resp 20; Temp 97.1(TE); Pulse Ox 99% on R/A; Weight 90.72 kg; nj1 Height 5 ft. 7 in. ; 17:15 BP 127 / 99; Pulse 75; Resp 14; Pulse Ox 99% on R/A; ph 15:33 Body Mass Index 31.32 (90.72 kg, 170.18 cm) nj1 Vitals: 17:15 Cardiac Rhythm Assessment Atrial fibrillation. ph ED Course: 13:40 Initial lab(s) drawn, by me, sent to lab. Inserted saline lock: 20 gauge in left ph antecubital area, using aseptic technique. Blood collected. 15:06 Patient arrived in ED. rg4 15:18 Arm band placed on Patient placed in an exam room, on a stretcher. ll1 15:23 Lien Fowler, MATTHEW is Primary Nurse. ph 15:25 Vic Pérez is Attending Physician. ci 15:34 Triage completed. nj1 16:21 XRAY Chest (1 view) In Process Unspecified. EDMS 17:19 Patient has correct armband on for positive identification. Bed in low position. Call ph light in reach. Side rails up X 1. Client placed on continuous cardiac and pulse oximetry monitoring. NIBP monitoring applied. playground monitor on. Door closed. Noise minimized. Warm blanket given. 17:21 No provider procedures requiring assistance completed. ph 18:24 Callie Simental MD is Hospitalizing Provider. ci Administered Medications: 16:14 Drug: NS 0.9% IV 1000 ml IV at 1000 ml once Route: IV; Rate: 1000 ml; Site: left ph antecubital; 18:17 Follow up: Response: No adverse reaction; IV Status: Completed infusion; IV Intake: ph 1000ml 16:51 CANCELLED (Physician Discretion): diltiazem 5 mg/hr IV at calculated rate See ci Administration Instructions; (standard dilution 125 mg diltiazem mixed in 125 mL NS; final concentration 1mg/mL). Recommended max rate 15 mg/hr; Titrate 5 mg/hr as often as every 15 minutes to achieve goal (see titration policy); Goal parameter HR less than 100 bpm 17:15 Drug: Diltiazem IVP 20 mg IVP once; Over 2 minutes Route: IVP; Site: left antecubital; ph 18:17 Follow up: Response: No adverse reaction ph 19:15 Drug: Doxycycline PO 100 mg PO once Route: PO; jw7 Medication: 17:21 VIS not applicable for this client. ph Intake: 18:17 IV: 1000ml; Total: 1000ml. ph Outcome: 18:25 Decision to Hospitalize by Provider. ci 20:21 Patient left the ED. jb4 Signatures: Dispatcher [employer] EDMS Lien Fowler RN Rita Rice ph4 Aditya Sutherland RN RN jb4 Joy Orozco RN RN ll1 Sabrina Chiu RN RN jw7 Camille Sanchez RN RN nj1 Vic Pérez ci
[2023-10-22] MEDS ORDERED: IPRATROPIUM BROM 0.5MG/2.5ML NEB PRN (18:31)
[2023-10-22] MEDS ORDERED: ONDANSETRON 4 MG/2 ML VIAL IV PRN (18:31)
[2023-10-22] MEDS ORDERED: MORPHINE 2 MG/ML SYR IV PRN (18:31)
[2023-10-22] MEDS ORDERED: ALBUTEROL 2.5 MG/3 ML NEB SOL NEB PRN (18:31)
[2023-10-22] MEDS ORDERED: BENZONATATE 100 MG CAP PO PRN (18:45)
[2023-10-22] MEDS ORDERED: DOXYCYCLINE 100 MG CAP PO ONE (19:12)
[2023-10-22] MEDS ORDERED: ENOXAPARIN 40 MG/0.4 ML SQ SCH (20:00)
--- NOTE | 2023-10-22 20:10 | P.HP ---
Certification for Inpatient Patient admitted to: Observation With expected LOS: <2 Midnights Patient will require the following post-hospital care: None Practitioner: I am a practitioner with admitting privileges, knowledge of patient current condition, hospital course, and medical plan of care. Services: Services provided to patient in accordance with Admission requirements found in Title 42 Section 412.3 of the Code of Federal Regulations Patient History Date of Service: 10/22/23 Reason for admission: Cough and palpitation History of Present Illness: 72-year-old female with past medical history of hypothyroidism, A-fib status post with cardioversion 3 months ago, follows with Dr. Thrasher , presented because of cough since the last 1 week. She admitted to cough contact with her son who lives in a separate house also having upper respiratory tract infection, she admitted to rhinorrhea. She states her cough is productive of whitish sputum. She denies any hemoptysis. She admits to some chills but denies any known fever. She states she was seen at urgent care and COVID and flu screen was negative yesterday. She developed exertional dyspnea since the last 1 day and presented to the hospital for overall symptoms today. She admits to intermittent palpitation patient states A-fib has not really been controlled. She states she is adherent with her medicationmetoprolol 100 mg twice daily. On presented shortly in the ED she was afebrile, noted with A-fib with RVR with rate of 133. She received 20 mg IV Cardizem with improvement of rate to the 70s now. EKG showed A-fib with RVR. Chest x-ray shows clear lungs bilaterally no consolidation or infiltrate. proBNP was mildly elevated at 1222. Creatinine of 1.26. She has been admitted for further management Review of old records shows echo from 2018 showing normal EF, JARAD from 3 months ago showing normal valves with good EF Allergies No Known Allergies Allergy (Verified 08/11/23 09:59) Home Medications: Levothyroxine [Synthroid*] 75 mcg PO [id number] 04/06/18 Aspirin 81 mg PO DAILY #30 tab.chew 04/07/18 Metoprolol Succinate [Toprol Xl] 25 mg PO DAILY #30 tab.er.24h 04/07/18 - Past Medical/Surgical History Diabetic: No -: Hypothyroid -: sinus problems -: Chronic atrial fibrillation -: Status post cardioversion - Family History Family History: Reviewed- Non-Contributory - Family History Mother -: Hypertension, Diabetes Father -: Stroke, Cancer - Social History Smoking Status: Never smoker Alcohol use: No CD- Drugs: No Caffeine use: Yes Place of Residence: Home Review of Systems 10-point ROS is otherwise unremarkable General: Chills, Weakness Respiratory: Cough, Shortness of Breath Cardiovascular: Palpitations, Orthopnea, Edema Physical Examination - Physical Exam General: Alert, In no apparent distress, Oriented x3, Obese HEENT: Atraumatic, Normocephalic, PERRLA Neck: Supple, 2+ carotid pulse no bruit, JVD not distended Respiratory: Clear to auscultation bilaterally, Normal air movement Cardiovascular: Normal pulses, No murmurs, Edema (Trace bilateral pedal edema), Irregular heart rate/rhythm Gastrointestinal: Normal bowel sounds, Soft and benign, Non-distended Musculoskeletal: No clubbing, No swelling Integumentary: No rashes, No breakdown Neurological: Normal speech, Normal strength at 5/5 x4 extr, Normal tone - Studies Laboratory Data (last 24 hrs) 10/22/23 10/22/23 15:40 15:40 WBC 7.50 Hgb 15.3 H Hct 46.3 H Plt Count 251 Sodium 141 Potassium 4.0 BUN 18 Creatinine 1.26 H Glucose 156 H Magnesium 2.2 Assessment and Plan - Problems (Diagnosis) (1) Upper respiratory tract infection Current Visit: Yes Status: Acute - Plan Impression 1 A-fib with RVR rate controlled now 2 upper respiratory tract infectionpresumed viral syndrome 3 hypothyroidismstable 4 elevated proBNPwith mild leg edema may be due to diastolic CHF 5chronic anticoagulation with Eliquis Plan Will admit patient to observation Will repeat COVID and flu screen as well as RSV screen Suspected upper viral syndrome, start Decadron/Tessalon Perles for cough control Start empirical antibiotics O2 although no infiltrate on chest x-ray A-fib with controlled rate now, add Cardizem 30 mg twice daily to regimen Continue Toprol 100 twice daily Continue Eliquis Given mild lower extremity edema as well as elevated proBNP, will dose Lasix x 1 now Possible discharge in a.m. Advance directivefull code Discharge Plan: Home Plan to discharge in: 24 Hours - Advance Directives Does patient have a Living Will: No Does patient have a Durable POA for Healthcare: No
[2023-10-22 21:45] LABS: INFLUENZA A NAA NEGATIVE (NEGATIVE); RESPIRATORY SYNCYTIAL VIR NAA NEGATIVE (NEGATIVE); SARS-COV-2 RT PCR NEGATIVE (NEGATIVE)
[2023-10-22] MEDS: FUROSEMIDE 40 MG/4 ML VIAL ONE (21:56)
[2023-10-22] MEDS: FUROSEMIDE 40 MG/4 ML VIAL IV ONE (22:02)
[2023-10-22] MEDS: CEFTRIAXONE 1,000 MG in NA CHLORIDE 0.9% 50 ML IVPB SCH (22:02)
[2023-10-22] MEDS: METOPROLOL TAR 50 MG TAB PO SCH (22:03)
[2023-10-22] MEDS: dexAMETHasone 4 MG TAB PO SCH (22:03)
[2023-10-22] MEDS: APIXABAN 5 MG TABLET PO SCH (22:03)
[2023-10-22] MEDS: GUAIFENESIN 600 MG SA TAB PO SCH (22:04)
[2023-10-22] MEDS: FAMOTIDINE 20 MG TAB PO SCH (22:04)
[2023-10-22 22:42] VITALS: BMI 32.5
[2023-10-22] MEDS: DILTIAZEM HCL 60 MG TAB PO SCH (23:09)
[2023-10-23 07:30] LABS: Absolute Lymphocytes (CBC) 1.5 K/uL (0.7-4.9); Absolute Monocytes 0.3 K/uL (0.1-1.3); Absolute Neutrophil 2.8 K/uL (1.8-8.0); Basophils % 0.4 % (0-1.3); Eosinophils % 0.2 % (0-4.4); Hematocrit 43.3 % (36.0-45.0); Hemoglobin 14.8 g/dL (12.0-15.0); Lymphocytes % 32.1 % (15.3-44.8); MCH 30.7 pg (27.0-35.0); MCHC 34.1 g/dL (32.0-36.0); MPV 9.3 fL (7.6-11.3); Monocytes % 6.7 % (3.3-12.3); Neutrophils % 60.6 % (41.7-73.7); Nucleated Red Blood Cells % 0.2 % (0-0); Platelets 243 thou/uL (152-406); RBC Red Blood Cell Count 4.81 M/uL (3.86-4.86); Red Cell Distribution Width 13.9 % (12.1-15.2)
[2023-10-23 07:41] LABS: Albumin 3.3 g/dL (3.4-5.0); Albumin/Globulin Ratio 0.8 (1.1-1.8); Anion Gap 9.9 mEq/L (5.0-15.0); Bilirubin Total 0.4 mg/dL (0.2-1.0); Potassium 3.9 mEq/L (3.5-5.1); Protein, Total 7.3 g/dL (6.4-8.2)
[2023-10-23] MEDS: ASPIRIN EC 81 MG TAB PO SCH (09:25)
[2023-10-23] MEDS: DILTIAZEM HCL 60 MG TAB PO SCH (09:33)
--- NOTE | 2023-10-23 10:08 | P.PN ---
Subjective Date of Service: 10/23/23 Chief Complaint: Cough and palpitation Subjective: No new changes <Marcia Powell - Last Filed: 10/23/23 10:09> Date of Service: 10/24/23 <Tonia Holden Trupti - Last Filed: 10/24/23 22:13> Review of Systems 10-point ROS is otherwise unremarkable General: As per HPI Respiratory: As per HPI Cardiovascular: As per HPI <Marcia Powelllen - Last Filed: 10/23/23 10:09> Physical Examination - Vital Signs Temperature: 97.4 F Blood Pressure: 160/79 Pulse: 123 Respirations: 16 Pulse Ox (%): 93 - Physical Exam General: Alert, In no apparent distress, Oriented x3 HEENT: Atraumatic, Normocephalic Neck: JVD not distended Respiratory: Expiratory wheezes, Other (cough) Cardiovascular: Other (a. fib with RVR), Edema, Irregular heart rate/rhythm Capillary refill: <2 Seconds Gastrointestinal: Soft and benign Musculoskeletal: No clubbing Neurological: Normal speech, Normal tone Lymphatics: No axilla or inguinal lymphadenopathy External genitalia: Deferred Rectal: Deferred - Studies Laboratory Data (last 24 hrs) 10/22/23 10/22/23 15:40 15:40 WBC 7.50 Hgb 15.3 H Hct 46.3 H Plt Count 251 Sodium 141 Potassium 4.0 BUN 18 Creatinine 1.26 H Glucose 156 H Magnesium 2.2 <Marcia Powell - Last Filed: 10/23/23 10:09> Assessment And Plan - Plan 72-year-old female with past medical history of hypothyroidism, A-fib status post with cardioversion 3 months ago, follows with Dr. Thrasher , presented because of cough since the last 1 week. She admitted to cough contact with her son who lives in a separate house also having upper respiratory tract infection, she admitted to rhinorrhea. She states her cough is productive of whitish sputum. She denies any hemoptysis. She admits to some chills but denies any known fever. She states she was seen at urgent care and COVID and flu screen was negative yesterday. She developed exertional dyspnea since the last 1 day and presented to the hospital for overall symptoms today. She admits to intermittent palpitation patient states A-fib has not really been controlled. S he states she is adherent with her medicationmetoprolol 100 mg twice daily. On presented shortly in the ED she was afebrile, noted with A-fib with RVR with rate of 133. She received 20 mg IV Cardizem with improvement of rate to the 70s now. EKG showed A-fib with RVR. Chest x-ray shows clear lungs bilaterally no consolidation or infiltrate. proBNP was mildly elevated at 1222. Creatinine of 1.26. She has been admitted for further management (1) Upper respiratory tract infection with wheeze Current Visit: Yes Status: Acute - Plan Impression 1 A-fib with RVR rate remains in the 120s this am 10/22 2 upper respiratory tract infectionpresumed viral syndrome 3 hypothyroidismstable 4 elevated proBNPwith mild leg edema may be due to diastolic CHF 5chronic anticoagulation with Eliquis Plan Will admit patient to observation Will repeat COVID and flu screen as well as RSV screen - negative Suspected upper viral syndrome, start Decadron/Tessalon Perles for cough control Start empirical antibiotics O2 although no infiltrate on chest x-ray A-fib with RVR (exacerbated by nebs for bronchocontrictive URI), add Cardizem 30 mg twice daily to regimen Continue Toprol 100 twice daily Continue Eliquis Given mild lower extremity edema as well as elevated proBNP, will dose Lasix x 1 now, continues with edema, mildly elevated BP even with Metoprolol 100mg BID and Cardizem 30mg po BID. Possible discharge in afternoon Advance directivefull code Discharge Plan: Home Plan to discharge in: 24 Hours - Advance Directives Does patient have a Living Will: No Does patient have a Durable POA for Healthcare: No Discharge Plan: Home Plan to discharge in: 24 Hours <Marcia Powell - Last Filed: 10/23/23 10:09> - Plan Pt seen and examined. I agree with the note by the LENS POLISHER HAND. Continue steroid, cardizem and toprol. <Tonia Holden - Last Filed: 10/24/23 22:13>
[2023-10-23] MEDS: FUROSEMIDE 20 MG/ 2ML VIAL IV ONE (11:03)
[2023-10-23] MEDS: SOTALOL HCL 80 MG TAB PO ONE (20:40)
--- NOTE | 2023-10-23 23:09 | CON ---
Date of Consultation: 10/23/2023 Reason For Consultation: Atrial fibrillation. History Of Present Illness: A 72-year-old female with history of atrial fibrillation, status post ca rdioversion 3 months ago, presented to a Urgent Care because of upper respiratory tract infection. S he was found to be in atrial fibrillation with rapid ventricular response. She was sent to the emerg ency room. She was given Cardizem. Heart rate improved and at the present time, she is still in atr ial fibrillation and heart rate is borderline. Denies having any chest pain. She has cough that is dry and nasal congestion. Past Medical History: As outlined above in the HPI. Medications: Refer to reconciliation sheet for detailed list. Allergies: NO KNOWN DRUG ALLERGIES. Family History: No premature coronary artery disease or cancer. Social History: She does not smoke or drink. Does not use any drugs. Review of Systems: All systems reviewed. They were negative except as mentioned in HPI. Physical Examination: Vital Signs: Reviewed. Head and Neck: Pupils are equal, reactive to light. Intact eye movements. No JVD. No cervical lym phadenopathy. Neck: Supple. Thyroid is not enlarged. Lungs: Positive bilateral air entry with rhonchi bilaterally. No accessory muscle use or muscle ret raction. Heart: Irregularly irregular and tachycardic. Abdomen: Soft, nontender. Bowel sounds positive. No organomegaly. No masses or hernia. No rigidi ty or rebound. Extremities: Edema bilaterally. No clubbing, cyanosis. Intact pulses. Skin: No rash. Neurologic: Alert, awake, and oriented x3. No acute focal deficits appreciated. Investigations: BUN is 17, creatinine 0.76. Troponin is negative and hemoglobin is 14.8. Assessment And Recommendations: 1.Atrial fibrillation with rapid ventricular response. Start her on sotalol 80 mg twice a day. Sta rt first dose tonight and do an EKG after each dose and wait for 3 doses and patient can be released and also continue Eliquis and once sotalol is started, metoprolol probably can be stopped. 2.Upper respiratory tract infection. Continue supportive measures and antibiotics apparently. 3.Hypertension. Blood pressure is elevated. Resume home medications. Start sotalol as above and r e-assess the response. 4.Elevated NT proBNP due to chronic diastolic heart failure. She appears to be euvolemic. We will monitor. SR/MODL Voice ID: [id number] Report ID: [id number]
[2023-10-24] MEDS: SOTALOL HCL 80 MG TAB PO SCH (06:13)
[2023-10-24 07:26] LABS: Absolute Lymphocytes (CBC) 1.8 K/uL (0.7-4.9); Absolute Monocytes 0.5 K/uL (0.1-1.3); Absolute Neutrophil 10.8 K/uL (1.8-8.0); Basophils % 0.2 % (0-1.3); Hematocrit 44.8 % (36.0-45.0); Hemoglobin 14.9 g/dL (12.0-15.0); Lymphocytes % 13.9 % (15.3-44.8); MCH 30.1 pg (27.0-35.0); MCHC 33.2 g/dL (32.0-36.0); MCV 90.8 fL (80-100); MPV 9.2 fL (7.6-11.3); Monocytes % 3.8 % (3.3-12.3); Neutrophils % 82.1 % (41.7-73.7); Nucleated Red Blood Cells % 0.1 % (0-0); Platelets 325 thou/uL (152-406); RBC Red Blood Cell Count 4.93 M/uL (3.86-4.86); Red Cell Distribution Width 13.8 % (12.1-15.2)
[2023-10-24] MEDS: CEFTRIAXONE 1000 MG/VIAL ONE (07:40)
[2023-10-24 07:45] LABS: Anion Gap 8.1 mEq/L (5.0-15.0); Potassium 4.1 mEq/L (3.5-5.1)
--- NOTE | 2023-10-24 10:46 | P.PN ---
Subjective Date of Service: 10/24/23 Chief Complaint: Cough and palpitation Subjective: Improving (Seen per Dr. Fitzpatrick last pm, started Sotalol. Pt understands need for three inpatient doses and reassessment) <Marcia Powell - Last Filed: 10/24/23 10:42> Date of Service: 10/24/23 <Tonia Holden - Last Filed: 10/24/23 12:10> Review of Systems 10-point ROS is otherwise unremarkable General: Weakness, Malaise Respiratory: As per HPI Cardiovascular: As per HPI <Marcia Powell - Last Filed: 10/24/23 10:42> Physical Examination - Vital Signs Temperature: 97.3 F Blood Pressure: 127/75 Pulse: 87 Respirations: 16 Pulse Ox (%): 93 - Physical Exam General: Alert, In no apparent distress, Oriented x3 HEENT: Atraumatic, Normocephalic Neck: JVD not distended Respiratory: Normal air movement, Other (less wheezing today, voice remains congested sounding) Cardiovascular: Normal pulses, Other (more rate controlled 80-100 instead of 100-120), Irregular heart rate/rhythm Capillary refill: <2 Seconds Gastrointestinal: Soft and benign Musculoskeletal: No clubbing, No swelling Integumentary: No breakdown, Other (flushed in appearance) Neurological: Normal speech Lymphatics: No axilla or inguinal lymphadenopathy External genitalia: Deferred Rectal: Deferred <Marcia Powell - Last Filed: 10/24/23 10:42> Assessment And Plan - Plan 72-year-old female with past medical history of hypothyroidism, A-fib status post with cardioversion 3 months ago, follows with Dr. Thrasher , presented because of cough since the last 1 week. She admitted to cough contact with her son who lives in a separate house also having upper respiratory tract infection, she admitted to rhinorrhea. She states her cough is productive of whitish sputum. She denies any hemoptysis. She admits to some chills but denies any known fever. She states she was seen at urgent care and COVID and flu screen was negative yesterday. She developed exertional dyspnea since the last 1 day and presented to the hospital for overall symptoms today. She admits to intermittent palpitation patient states A-fib has not really been controlled. She states she is adherent with her medicationmetoprolol 100 mg twice daily. On presented shortly in the ED she was afebrile, noted with A-fib with RVR with rate of 133. She received 20 mg IV Cardizem with improvement of rate to the 70s now. EKG showed A-fib with RVR. Chest x-ray shows clear lungs bilaterally no consolidation or infiltrate. proBNP was mildly elevated at 1222. Creatinine of 1.26. She has been admitted for further management (1) Upper respiratory tract infection with wheeze Current Visit: Yes Status: Acute - Plan Impression 1 A-fib with RVR rate improved overnight 80-100s 2 upper respiratory tract infectionpresumed viral syndrome 3 hypothyroidismstable 4 elevated proBNPwith mild leg edema may be due to diastolic CHF 5chronic anticoagulation with Eliquis Plan Will admit patient to observation Will repeat COVID and flu screen as well as RSV screen - negative Suspected upper viral syndrome, start Decadron/Tessalon Perles for cough control Start empirical antibiotics O2 although no infiltrate on chest x-ray, Receiving Rocephin A-fib with RVR (exacerbated by nebs for bronchocontrictive URI), add Cardizem 30 mg twice daily to regimen, Dr. Fitzpatrick started Sotalol last pm discontinue Toprol 100 twice daily Continue Eliquis Cardizem 30mg po BID. Possible discharge post 3rd Sotalol dose and QTc eval Advance directivefull code Discharge Plan: Home Plan to discharge in: 24 Hours - Advance Directives Does patient have a Living Will: No Does patient have a Durable POA for Healthcare: No <Marcia Powell - Last Filed: 10/24/23 10:42> - Plan Pt seen and examined. I agree with the note by the HEEL ATTACHER WOOD. Will discharge pt after the 3rd dose of sotalol. She is eager to go home. Continue current treatment regimen. <Tonia Holden - Last Filed: 10/24/23 12:10>
--- NOTE | 2023-10-24 17:47 | P.DS ---
Admission Date: 10/22/23 Discharge Date: 10/24/23 Reason for Admission: Cough and palpitation Consultations: Dr. Fitzpatrick Procedures: Sotalol initiation Brief History of Present Illness: 72-year-old female with past medical history of hypothyroidism, A-fib status post with cardioversion 3 months ago, follows with Dr. Thrasher , presented because of cough since the last 1 week. She admitted to cough contact with her son who lives in a separate house also having upper respiratory tract infection, she admitted to rhinorrhea. She states her cough is productive of whitish sputum. She denies any hemoptysis. She admits to some chills but denies any known fever. She states she was seen at urgent care and COVID and flu screen was negative yesterday. She developed exertional dyspnea since the last 1 day and presented to the hospital for overall symptoms today. She admits to intermittent palpitation patient states A-fib has not really been controlled. She states she is adherent with her medicationmetoprolol 100 mg twice daily. On presented shortly in the ED she was afebrile, noted with A-fib with RVR with rate of 133. She received 20 mg IV Cardizem with improvement of rate to the 70s now. EKG showed A-fib with RVR. Chest x-ray shows clear lungs bilaterally no consolidation or infiltrate. proBNP was mildly elevated at 1222. Creatinine of 1.26. She has been admitted for further management Review of old records shows echo from 2018 showing normal EF, JARAD from 3 months ago showing normal valves with good EF Hospital Course: [facility] Hospital course for atrial fibrillation with rapid ventricular was exacerbated by an upper respiratory infection and need for albuterol nebulization. She started feeling somewhat better on a respiratory status but remained in A-fib with a rate between 100-125 even on 100mg metoprolol twice daily and Cardizem 30 mg p.o. twice daily. She was seen by Dr. Fitzpatrick last evening and started on Sotalol 80. Last night her rate was between 70 and 80 while she was sleeping. She received her second dose at 6 AM and will have an EKG status post her third dose at 6 PM. We are hopeful there will be minimal effect on her QTc and that this would be the answer to her frequent bouts of atrial fibrillation. She will be discharged on Augmentin 875 mg p.o. twice daily x 7 days, albuterol HFA 2 puffs 4 times daily x 1 week, and sotalol 80 mg p.o. twice daily, along with Cardizem 30 mg p.o. twice daily. She will need to follow-up with Dr. Fitzpatrick in 1 week. <Marcia Powell Alireza - Last Filed: 10/24/23 17:55> Admission Date: 10/25/23 Discharge Date: 10/28/23 Brief History of Present Illness: - Physical Exam General: Alert, In no apparent distress, Oriented x3 HEENT: Atraumatic, Normocephalic Neck: Supple, 2+ carotid pulse no bruit, JVD not distended Respiratory: Clear to auscultation bilaterally, Normal air movement Cardiovascular: No edema, Normal pulses, Regular rate/rhythm, Normal S1 S2 Capillary refill: <2 Seconds Gastrointestinal: Normal bowel sounds, Soft and benign, Non-distended Musculoskeletal: No clubbing, No swelling Integumentary: No rashes, No breakdown, No significant lesion Neurological: Normal gait, Normal speech, Normal strength at 5/5 x4 extr, Normal tone, Sensation intact Lymphatics: No axilla or inguinal lymphadenopathy Hospital Course: Treated with upper respiratory infection, discharged home on p.o. antibiotics, albuterol inhaler, Treated for atrial fibrillation, A-fib RVR, started on sotalol. Follow-up with Dr. Fitzpatrick outpatient Status post JARAD, 10/27 Follow-up with cardiology after discharge Continue metoprolol, Cardizem, Eliquis Continue home medicines as previously prescribed Discharged home with [facility] Initialized on 10/25/23 GOAL: Clear understanding of disease process INSTRUCTIONS: Physician Discharge Instructions: -Follow-up with PCP in 1 to 2 weeks -Please call Dr. Pang at [phone] if any questions regarding hospital stay -Please call nursing station at [phone] if any nursing or medication questions -Return to the emergency room if symptoms worsen Diet: ADA, low sodium Activity: Fall precautions <Allie Watkins - Last Filed: 10/28/23 15:08> Disposition: ROUTINE DISCHARGE Discharge Condition: GOOD Vital Signs/Physical Exam: Temp Pulse Resp BP Pulse Ox 96.8 F 114 H 17 162/93 H 94 10/24/23 15:57 10/24/23 15:57 10/24/23 15:57 10/24/23 15:57 10/24/23 15:57 General: Alert, In no apparent distress, Oriented x3 HEENT: Atraumatic, Normocephalic Neck: JVD not distended Respiratory: Normal air movement, Other (Cough, less wheezing/rhonchi than on admission) Cardiovascular: Irregular heart rate/rhythm Capillary refill: <2 Seconds Gastrointestinal: Soft and benign Musculoskeletal: No clubbing, No swelling Integumentary: No rashes, Other (Hyperemic) Neurological: Normal speech, Normal tone Lymphatics: No axilla or inguinal lymphadenopathy External genitalia: Deferred Rectal: Deferred Laboratory Data at Discharge: WBC 13.10 thou/uL (4.3-10.9) H 10/24/23 07:14 Hgb 14.9 g/dL (12.0-15.0) 10/24/23 07:14 Hct 44.8 % (36.0-45.0) 10/24/23 07:14 Plt Count 325 thou/uL (152-406) D 10/24/23 07:14 Sodium 136 mEq/L (136-145) 10/24/23 07:14 Potassium 4.1 mEq/L (3.5-5.1) 10/24/23 07:14 BUN 26 mg/dL (7-18) H 10/24/23 07:14 Creatinine 1.07 mg/dL (0.55-1.02) H 10/24/23 07:14 Glucose 301 mg/dL (74-106) H 10/24/23 07:14 Magnesium 2.2 mg/dL (1.6-2.4) 10/22/23 15:40 Total Bilirubin 0.4 mg/dL (0.2-1.0) 10/23/23 06:31 AST 23 U/L (15-37) 10/23/23 06:31 ALT 28 U/L (13-56) 10/23/23 06:31 Alkaline Phosphatase 100 U/L (45-117) 10/23/23 06:31 <Powell,Marcia Alireza - Last Filed: 10/24/23 17:55> Vital Signs/Physical Exam: Temp Pulse Resp BP Pulse Ox 97.8 F 72 16 136/66 97 10/27/23 04:00 10/27/23 05:56 10/27/23 04:00 10/27/23 05:56 10/27/23 04:00 Laboratory Data at Discharge: WBC 16.20 thou/uL (4.3-10.9) H 10/27/23 03:26 Hgb 15.4 g/dL (12.0-15.0) H D 10/27/23 03:26 Hct 45.9 % (36.0-45.0) H 10/27/23 03:26 Plt Count 406 thou/uL (152-406) 10/27/23 03:26 Sodium 136 mEq/L (136-145) 10/27/23 03:26 Potassium 3.8 mEq/L (3.5-5.1) D 10/27/23 03:26 BUN 26 mg/dL (7-18) H 10/27/23 03:26 Creatinine 0.83 mg/dL (0.55-1.02) 10/27/23 03:26 Glucose 169 mg/dL (74-106) H 10/27/23 03:26 Magnesium 2.2 mg/dL (1.6-2.4) 10/22/23 15:40 Total Bilirubin 0.4 mg/dL (0.2-1.0) 10/23/23 06:31 AST 23 U/L (15-37) 10/23/23 06:31 ALT 28 U/L (13-56) 10/23/23 06:31 Alkaline Phosphatase 100 U/L (45-117) 10/23/23 06:31 <Allie Watkins - Last Filed: 10/28/23 15:08> Diet: Low sodium Activity: Ad layla <Marcia Powell - Last Filed: 10/24/23 17:55> Time spent managing pt's care (in minutes): 55 <Allie Watkins - Last Filed: 10/28/23 15:08> Home Medications: Aspirin 81 mg PO DAILY #30 tab.chew 04/07/18 Apixaban [Eliquis] 5 mg PO BID 10/22/23 Cholecalciferol (Vitamin D3) [Vitamin D 1000 Iu Tab] 2,000 unit PO DAILY 10/22/23 Levothyroxine Sodium [Synthroid] 100 mcg PO 0600 10/22/23 Metoprolol Succinate [Toprol Xl] 100 mg PO BID 10/22/23 Apixaban [Eliquis] 5 mg PO BID 10/28/23 Diltiazem Tab [Cardizem Tab*] 30 mg PO Q12H tab 10/28/23 Physician Discharge Instructions: Okay to DC IV and DC home Follow-up with primary care provider in 1 to 2 weeks Follow-up with cardiology in 1 to 2-week Please call the inpatient unit for any questions or concerns regarding hospital stay Return to the ER for worsening symptoms Followup: Celeste Irvin MD [Primary Care Provider] - Andrea Fitzpatrick MD [ACTIVE - CAN ADMIT] -
--- NOTE | 2023-10-24 19:53 | PN ---
Date of Progress Note: 10/24/2023 Subjective: Seen by bedside, doing clinically well, still in atrial fibrillation, rate is still rath er fast. Review of Systems: No chest pain, shortness of breath, orthopnea. Has mild cough. No nausea, vomiting, diarrhea. All other systems reviewed, they are negative. Objective: Vital Signs: Reviewed. Head and Neck: Pupils are equal, reactive to light. Intact eye movements. No JVD. No cervical lym phadenopathy. Neck is supple. Thyroid is not enlarged. Lungs: Clear to auscultation bilaterally. No rhonchi, wheezing, or crackles. No accessory muscle u se. Heart: Regular rate and rhythm. No extra sounds. Abdomen: Soft, nontender. Bowel sounds positive. No organomegaly. No masses or hernia. No rigidi ty or rebound. Extremities: No clubbing, cyanosis. Intact pulses. Skin: No rash. Neurologic: Alert, awake, oriented x3. No acute focal deficits appreciated. Investigations: Labs reviewed. Assessment/recommendation: 1.Atrial fibrillation with rapid ventricular response. Improving gradually. Continue sotalol and a fter third dose tonight, repeat EKG to evaluate QTc interval and by tomorrow, if she continues to be running fast, then we will add low-dose metoprolol and plan for outpatient cardioversion. 2.Upper respiratory tract infection. Stable to current management. 3.Hypertension. Blood pressure is controlled. Continue current therapy. SR/MODL Voice ID: [id number] Report ID: [id number]
[2023-10-25 05:18] LABS: Absolute Lymphocytes (CBC) 1.8 K/uL (0.7-4.9); Absolute Neutrophil 13.7 K/uL (1.8-8.0); Basophils % 0.1 % (0-1.3); Hematocrit 42.3 % (36.0-45.0); Hemoglobin 14.3 g/dL (12.0-15.0); Lymphocytes % 11.3 % (15.3-44.8); MCH 30.7 pg (27.0-35.0); MCHC 33.8 g/dL (32.0-36.0); MCV 90.8 fL (80-100); MPV 9.2 fL (7.6-11.3); Monocytes % 2.6 % (3.3-12.3); Nucleated Red Blood Cells % 0.1 % (0-0); Platelets 337 thou/uL (152-406); RBC Red Blood Cell Count 4.66 M/uL (3.86-4.86); Red Cell Distribution Width 13.8 % (12.1-15.2)
[2023-10-25 05:19] LABS: Absolute Monocytes 0.4 K/uL (0.1-1.3)
[2023-10-25 08:28] LABS: Platelet Estimate ADEQ; White Blood Cell Scan OK (OK)
[2023-10-25 08:29] LABS: Blood Morphology Comment NOT SEEN (NOT SEEN); Platelets, Giant FEW
--- NOTE | 2023-10-25 08:36 | P.PN ---
Subjective Date of Service: 10/25/23 Chief Complaint: Cough and palpitation Subjective: Other (pt states she is feeling better) <AndreMarcia Lay - Last Filed: 10/25/23 08:30> Date of Service: 10/25/23 <Tonia Holden - Last Filed: 10/25/23 22:08> Review of Systems 10-point ROS is otherwise unremarkable Respiratory: Cough, As per HPI Cardiovascular: As per HPI <Marcia Powell - Last Filed: 10/25/23 08:30> Physical Examination - Vital Signs Temperature: 97.0 F Blood Pressure: 141/80 Pulse: 79 Respirations: 17 Pulse Ox (%): 96 - Physical Exam General: Alert, In no apparent distress, Oriented x3 HEENT: Atraumatic, Normocephalic Neck: Supple Respiratory: Other (bronchial rhonchi, improved, no wheezing) Cardiovascular: Other (last pm EKG s/p 3rd dose Sotalol 537. Hold this am and consult Dr. Fitzpatrick), Irregular heart rate/rhythm Capillary refill: <2 Seconds Gastrointestinal: Soft and benign Musculoskeletal: No clubbing, No swelling Integumentary: No rashes Neurological: Normal speech, Normal tone Lymphatics: No axilla or inguinal lymphadenopathy External genitalia: Deferred Rectal: Deferred <Marcia Powell - Last Filed: 10/25/23 08:30> - Studies Laboratory Data (last 24 hrs) 10/25/23 10/25/23 04:37 04:37 WBC 15.90 H Hgb 14.3 Hct 42.3 Plt Count 337 Sodium 135 L Potassium 4.0 BUN 30 H Creatinine 0.99 Glucose 295 H <Tonia Holden - Last Filed: 10/25/23 22:08> Assessment And Plan - Plan 72-year-old female with past medical history of hypothyroidism, A-fib status post with cardioversion 3 months ago, follows with Dr. Thrasher , presented because of cough since the last 1 week. She admitted to cough contact with her son who lives in a separate house also having upper respiratory tract infection, she admitted to rhinorrhea. She states her cough is productive of whitish sputum. She denies any hemoptysis. She admits to some chills but denies any known fever. She states she was seen at urgent care and COVID and flu screen was negative yesterday. She developed exertional dyspnea since the last 1 day and presented to the hospital for overall symptoms today. She admits to intermittent palpitation patient states A-fib has not really been controlled. She states she is adherent with her medicationmetoprolol 100 mg twice daily. On presented shortly in the ED she was afebrile, noted with A-fib with RVR with rate of 133. She received 20 mg IV Cardizem with improvement of rate to the 70s now. EKG showed A-fib with RVR. Chest x-ray shows clear lungs bilaterally no consolidation or infiltrate. proBNP was mildly elevated at 1222. Creatinine of 1.26. She has been admitted for further management (1) Upper respiratory tract infection with wheeze Current Visit: Yes Status: Acute - Plan Impression 1 A-fib with RVR rate improved overnight 80-100s 2 upper respiratory tract infectionpresumed viral syndrome 3 hypothyroidismstable 4 elevated proBNPwith mild leg edema may be due to diastolic CHF 5chronic anticoagulation with Eliquis Plan Will admit patient to observation Will repeat COVID and flu screen as well as RSV screen - negative Suspected upper viral syndrome, start Decadron/Tessalon Perles for cough control, improved Start empirical antibiotics O2 although no infiltrate on chest x-ray, Receiving Rocephin A-fib with RVR (exacerbated by nebs for bronchocontrictive URI), add Cardizem 30 mg twice daily to regimen, Dr. Fitzpatrick started Sotalol last pm discontinue Toprol 100 twice daily. S/p third dose of Sotalol QTc 537. Hold am dose and contact Dr. Fitzpatrick Continue Eliquis Cardizem 30mg po BID. Possible discharge post 3rd Sotalol dose and QTc eval - prolonged QTc. Advance directivefull code Discharge Plan: Home Plan to discharge in: 48 Hours - Advance Directives Does patient have a Living Will: No Does patient have a Durable POA for Healthcare: No <Marcia Powell - Last Filed: 10/25/23 08:30> - Plan Pt seen and examined. I agree with the note by the MANAGER ART. Pt's QTc was 537. The Recoating Machine Operator recommended 1 more day of observation. Will continue rocephin and other meds. <Tonia Holden - Last Filed: 10/25/23 22:08>
[2023-10-26 03:06] LABS: Absolute Basophils 0.1 K/uL (0-0.5); Absolute Lymphocytes (CBC) 2.1 K/uL (0.7-4.9); Absolute Monocytes 0.5 K/uL (0.1-1.3); Absolute Neutrophil 12.4 K/uL (1.8-8.0); Basophils % 0.8 % (0-1.3); Hematocrit 41.4 % (36.0-45.0); Hemoglobin 14.1 g/dL (12.0-15.0); Lymphocytes % 13.6 % (15.3-44.8); MCH 30.8 pg (27.0-35.0); MCHC 34.1 g/dL (32.0-36.0); MCV 90.3 fL (80-100); MPV 9.1 fL (7.6-11.3); Monocytes % 3.1 % (3.3-12.3); Neutrophils % 82.5 % (41.7-73.7); Nucleated Red Blood Cells % 0.1 % (0-0); Platelets 328 thou/uL (152-406); RBC Red Blood Cell Count 4.58 M/uL (3.86-4.86); Red Cell Distribution Width 13.7 % (12.1-15.2)
[2023-10-26 03:17] LABS: Anion Gap 12.5 mEq/L (5.0-15.0); Potassium 4.5 mEq/L (3.5-5.1)
[2023-10-26] MEDS ORDERED: D10W 250 ML BAG IV PRN ×2 (08:06→10:32)
[2023-10-26] MEDS ORDERED: GLUCAGON 1 MG/VIAL IM PRN ×2 (08:06→10:32)
[2023-10-26] MEDS: INSULIN GLARGINE 100 UNIT/ML SQ SCH (09:00)
[2023-10-26] MEDS: INSULIN REGULAR (HUMAN) 100 UNIT/ML SQ SCH (11:45)
[2023-10-26] MEDS: HYDRALAZINE HCL 20 MG/ML VIAL IV PRN (15:16)
[2023-10-26] MEDS: INSULIN LISPRO 100 UNIT/ML SQ SCH (17:00)
--- NOTE | 2023-10-26 18:06 | P.PN ---
Subjective Date of Service: 10/26/23 Chief Complaint: Cough and palpitation Pt is resting comfortably in bed. She is eager to go home. but [facility] socket welder helper is planning to do cardioversion. Will f/u QTc on the new EKG. No complaints. Review of Systems General: Unremarkable Eyes: Unremarkable ENT: Unremarkable Respiratory: Unremarkable Cardiovascular: Unremarkable Gastrointestinal: Unremarkable Genitourinary: Unremarkable Integumentary: Unremarkable Neurological: Unremarkable Lymphatics: Unremarkable Physical Examination - Vital Signs Temperature: 97.6 F Blood Pressure: 160/77 Pulse: 86 Respirations: 17 Pulse Ox (%): 97 - Physical Exam General: Alert, In no apparent distress, Oriented x3 HEENT: Atraumatic, Normocephalic Neck: Supple, 2+ carotid pulse no bruit, JVD not distended Respiratory: Clear to auscultation bilaterally, Normal air movement Cardiovascular: No edema, Normal pulses, Regular rate/rhythm, Normal S1 S2 Capillary refill: <2 Seconds Gastrointestinal: Normal bowel sounds, Soft and benign, Non-distended Musculoskeletal: No clubbing, No swelling Integumentary: No rashes, No breakdown, No significant lesion Neurological: Normal gait, Normal speech, Normal strength at 5/5 x4 extr, Normal tone, Sensation intact Lymphatics: No axilla or inguinal lymphadenopathy Assessment And Plan - Plan A-fib with RVR: heart rate improved. Will continue sotalol, diltiazem, Eliquis and telemetry. Cardiology is planning to do cardioversion. Dr. Fitzpatrick started Sotalol and discontinued Toprol 100 twice daily. S/p third dose of Sotalol QTc 537 Upper respiratory tract infection: Likely due to viral syndrome. Will continue benzonatate and prn albuterol neb. Off steroid due to hyperglycemia. COVID and flu negative. Hypothyroidism: Continue synthroid. Hyperglycemia: Due to steroid. Continue accuchek and insulin. Elevated proBNP: Pt has trace leg edema. Will give lasix 20mg iv once. DVT ppx: Eliquis Dispo: Pending hospital course.
--- NOTE | 2023-10-26 18:13 | PN ---
Date of Progress Note: 10/26/2023 Subjective: Seen by bedside. Doing clinically better. Heart rate is improved slightly. Review of Systems: No chest pain. Mild shortness of breath. No nausea, vomiting, or diarrhea. No dysuria, polyuria, o r urinary urgency. No skin rash or headache. All other systems reviewed, they were negative. Objective: Vital Signs: Reviewed. Head and Neck: Pupils are equal, reactive to light. Intact eye movements. No JVD. No cervical lym phadenopathy. Neck is supple. Thyroid is not enlarged. Lungs: Clear to auscultation bilaterally. No accessory muscle use or muscle retraction. Heart: Irregularly irregular. No extra sounds. Abdomen: Soft, nontender. Bowel sounds positive. No organomegaly. No masses or hernia. No rigidi ty or rebound. Extremities: Trace edema bilaterally. No clubbing or cyanosis. Intact pulses. Skin: No rash. No nodule. Neurologic: Alert, awake, oriented x3. No acute focal deficits appreciated. Lymph Nodes: No cervical or axillary lymphadenopathy. Investigations: BUN 27, creatinine 0.85. Assessment And Recommendations: 1.Atrial fibrillation. Rate is better. Continue sotalol and the patient was started on Cardizem an d heart rate seems to be better. I will plan of doing a JARAD-guided cardioversion before discharge. Continue Eliquis. 2.Upper respiratory tract infection, gradually improving. 3.Hypertension, which is borderline elevated, but she appears to be fluid overloaded. I recommend t o give her 1 dose of Lasix 40 mg IV and monitor carefully BUN, creatinine, electrolytes, just to give her 1 dose and assess response to t hat. SR/MODL Voice ID: [id number] Report ID: [id number]
[2023-10-26] MEDS: FUROSEMIDE 20 MG/ 2ML VIAL IV ONE (18:28)
[2023-10-26] MEDS: METOPROLOL TAR 25 MG TAB PO SCH (20:33)
[2023-10-27 03:54] LABS: Absolute Basophils 0.2 K/uL (0-0.5); Absolute Eosinophils 0.1 K/uL (0-0.5); Absolute Lymphocytes (CBC) 3.9 K/uL (0.7-4.9); Absolute Monocytes 1.2 K/uL (0.1-1.3); Absolute Neutrophil 10.9 K/uL (1.8-8.0); Eosinophils % 0.6 % (0-4.4); Hematocrit 45.9 % (36.0-45.0); Hemoglobin 15.4 g/dL (12.0-15.0); Lymphocytes % 23.9 % (15.3-44.8); MCH 30.1 pg (27.0-35.0); MCHC 33.6 g/dL (32.0-36.0); MCV 89.4 fL (80-100); MPV 8.9 fL (7.6-11.3); Monocytes % 7.2 % (3.3-12.3); Neutrophils % 67.3 % (41.7-73.7); Nucleated Red Blood Cells % 0.1 % (0-0); Platelets 406 thou/uL (152-406); RBC Red Blood Cell Count 5.14 M/uL (3.86-4.86); Red Cell Distribution Width 13.7 % (12.1-15.2)
[2023-10-27 04:10] LABS: Anion Gap 11.8 mEq/L (5.0-15.0); Potassium 3.8 mEq/L (3.5-5.1)
--- NOTE | 2023-10-27 08:20 | P.PN ---
Subjective Date of Service: 10/27/23 Chief Complaint: Cough and palpitation Patient was admitted with A-fib RVR, acute on chronic heart failure, will continue home sotalol, cardiology consulted, on Eliquis Plan n.p.o. on 415 for JARAD in the a.m. per Dr. Fitzpatrick - Physical Exam General: Alert, In no apparent distress, Oriented x3 HEENT: Atraumatic, Normocephalic Neck: Supple, 2+ carotid pulse no bruit, JVD not distended Respiratory: Clear to auscultation bilaterally, Normal air movement Cardiovascular: No edema, Normal pulses, Regular rate/rhythm, Normal S1 S2 Capillary refill: <2 Seconds Gastrointestinal: Normal bowel sounds, Soft and benign, Non-distended Musculoskeletal: No clubbing, No swelling Integumentary: No rashes, No breakdown, No significant lesion Neurological: Normal gait, Normal speech, Normal strength at 5/5 x4 extr, Normal tone, Sensation intact Lymphatics: No axilla or inguinal lymphadenopathy Review of Systems Per [facility] Physical Examination - Vital Signs Temperature: 97.8 F Blood Pressure: 136/66 Pulse: 72 Respirations: 16 Pulse Ox (%): 97 Assessment And Plan - Plan Assessment And Plan A-fib with RVR uncontrolled improved heart rate improved. Will continue sotalol, diltiazem, Eliquis and telemetry. Cardiology is planning to do cardioversion. Dr. Fitzpatrick started Sotalol and discontinued Toprol 100 twice daily. S/p third dose of Sotalol QTc 537 JARAD scheduled for 10/[address] Fitzpatrick Acute on chronic heart failure unknown baseline, unknown ejection fraction Hypertensive urgency Elevated proBNP: Pt has trace leg edema. Will give lasix 20mg iv once. As needed antihypertensives viral upper respiratory infection Productive cough Upper respiratory tract infection: Likely due to viral syndrome. Will continue benzonatate and prn albuterol neb. Off steroid due to hyperglycemia. COVID and flu negative. On ceftriaxone Hypothyroidism: Continue synthroid. Hyperglycemia: Due to steroid. Continue accuchek and insulin. DVT ppx: Eliquis Dispo: Home with home health Discharge Plan: Home - Code Status/Comfort Care Code Status: Full Code Critical Care: No Time Spent Managing PTS Care (In Minutes): 35
[2023-10-27] MEDS: METOPROLOL TARTRATE 5 MG/5 ML INJ IV ONE (18:09)
[2023-10-27] MEDS: METOPROLOL TARTRATE 5 MG/5 ML INJ IV STA (18:10)
[2023-10-27] MEDS: ACETAMINOPHEN 500 MG TAB PO PRN (18:34)
[2023-10-27] MEDS ORDERED: METOPROLOL TARTRATE 5 MG/5 ML INJ IV PRN (20:00)
[2023-10-28] MEDS ORDERED: LEVALBUTEROL 0.63 MG/3 ML NEB NEB PRN (06:00)
[2023-10-28 06:26] LABS: Absolute Basophils 0.1 K/uL (0-0.5); Absolute Eosinophils 0.4 K/uL (0-0.5); Absolute Lymphocytes (CBC) 5.3 K/uL (0.7-4.9); Absolute Monocytes 1.2 K/uL (0.1-1.3); Absolute Neutrophil 9.2 K/uL (1.8-8.0); Basophils % 0.4 % (0-1.3); Eosinophils % 2.5 % (0-4.4); Hematocrit 49.1 % (36.0-45.0); Hemoglobin 16.4 g/dL (12.0-15.0); MCH 30.5 pg (27.0-35.0); MCHC 33.5 g/dL (32.0-36.0); MCV 91.2 fL (80-100); MPV 8.5 fL (7.6-11.3); Monocytes % 7.1 % (3.3-12.3); Nucleated RBC Absolute Count 0.1 (0-0); Nucleated Red Blood Cells % 0.3 % (0-0); Platelets 398 thou/uL (152-406); RBC Red Blood Cell Count 5.39 M/uL (3.86-4.86); Red Cell Distribution Width 13.9 % (12.1-15.2)
[2023-10-28 06:40] LABS: Magnesium 2.3 mg/dL (1.6-2.4)
--- NOTE | 2023-10-28 08:44 | PN ---
Date of Progress Note: 10/28/2023 Subjective: Seen by bedside, doing clinically well. Does not have any chest pain or shortness of br eath. No nausea, vomiting, diarrhea. All other systems reviewed, they are negative. Objective: Vital Signs: Reviewed. Head and Neck: Pupils are equal, reactive to light. Intact eye movements. No JVD. No cervical lym phadenopathy. Neck is supple. Thyroid is not enlarged. Lungs: Clear to auscultation bilaterally. No rhonchi, wheezing, or crackles. No accessory muscle u se. Heart: Irregularly irregular. No extra sounds. Abdomen: Soft, nontender. Bowel sounds positive. No organomegaly. No masses or hernia. No rigidi ty or rebound. Extremities: No edema, clubbing, cyanosis. Intact pulses. Skin: No rash or nodule. Neuro: Alert, awake, oriented x3. No acute focal deficits appreciated. Investigations: BUN 27, creatinine 0.9, hemoglobin is 16.4. Assessment/recommendation: 1.Atrial fibrillation with rapid ventricular response, rate is controlled now. We will plan for JARAD -guided cardioversion. She failed sotalol because of prolonged QTc interval. We will continue curre nt management with metoprolol, Cardizem, and Eliquis. 2.Upper respiratory tract infection, improving gradually. Continue current management. 3.Hypertension. Blood pressure is controlled. SR/MODL Voice ID: [id number] Report ID: [id number]
[2023-10-28] MEDS: NA CHLORIDE 0.9% 500 ML ONE (11:41)
[2023-10-28] MEDS ORDERED: LIDOCAINE 2% MPF 5 ML VIAL ONE (12:08)
[2023-10-28] MEDS ORDERED: propofoL 200 MG/20 ML VIAL IV ONE (12:08)
[2023-10-28] MEDS: METOPROLOL TARTRATE 5 MG/5 ML INJ IV ONE (13:15)
[2023-10-28 13:53] VITALS: O2SAT 99
[2023-10-28 14:31] VITALS: BP 160/84; TEMP 96.8
[2023-10-28] MEDS ORDERED: METOPROLOL TAR 50 MG TAB PO SCH (18:15)
[2023-10-28] MEDS ORDERED: DILTIAZEM HCL 60 MG TAB PO SCH (21:00)
--- NOTE | 2023-10-29 10:21 | TEE ---
TRANSESOPHAGEAL ECHOCARDIOGRAM REPORT CARDIOLOGY DEPARTMENT DATE OF STUDY: 10/28/2023 HEIGHT: 5'7" WEIGHT: 199 lbs DIAGNOSIS: ATRIAL FIBRILLATION/ CARDIOVERSION OPERATIONS LEAD COMMENTS: JARAD CARDIAC HISTORY: CATHERIZATION: SURGERY: PROSTHETIC VALVE: PACEMAKER: 2 DIMENSIONAL ASSESSMENT: RIGHT ATRIUM: LEFT ATRIUM: RIGHT VENTRICLE: LEFT VENTRICLE: TRICUSPID VALVE: MITRAL VALVE: PULMONIC VALVE: AORTIC VALVE: PERICARDIAL EFFUSION: AORTIC ROOT: EJECTION FRACTION: 55-60% LEFT VENTRICULAR WALL MOTION: DOPPLER/COLOR FLOW: COMMENTS: 1. TRANSESOPHAGEAL ECHOCARDIOGRAM PROBE WAS INSERTED, NO DIFFICULTY 2. NO LEFT ATRIAL APPENDAGE THROMBUS IS SEEN 3. NORMAL LEFT VENTRICULAR EJECTION FRACTION 55-60% TECHNOLOGIST: COLIN FERNANDEZ
== END 2023-10-28 15:45 | disposition home or self-care (01) | DRG 291 ==
LOC: ER 15:04 → ERHOLD 18:31 → 4TH 20:04 → OBSVTOIN 10-25 16:32
PROVIDERS: ADMIT Internal Medicine; ATTEND Hospitalist
PROC: B24BZZ4 Ultrasonography of Heart with Aorta, Transesophageal (ICD-10-PCS; principal; 2023-10-28)
DX: I11.0 Hypertensive heart disease with heart failure (principal); I50.33 Acute on chronic diastolic (congestive) heart failure; I48.20 Chronic atrial fibrillation, unspecified; J20.9 Acute bronchitis, unspecified; E07.9 Disorder of thyroid, unspecified; E03.9 Hypothyroidism, unspecified; I16.0 Hypertensive urgency; J06.9 Acute upper respiratory infection, unspecified; R73.9 Hyperglycemia, unspecified; Z11.52 Encounter for screening for COVID-19; Z79.82 Long term (current) use of aspirin; Z79.890 Hormone replacement therapy; Z79.899 Other long term (current) drug therapy; Z28.310 Unvaccinated for COVID-19
CPT/HCPCS: 0241U; 36415; 71045; 80048; 80053; 82947; 83735; 83880; 84443; 84484; 85025; 92960; 93005; 93312; 96361; 96374; 99285; G0378; J0360; J0696; J1815; J1940; J2001; J2704; J7030; J7040; J8540